=== PATIENT | female | born 1960 | race Caucasian/White ===

== ENCOUNTER 2017-11-08 12:47 | Observation (INO) | payer MEDICARE ==
[~2017-11-08] VITALS: Ht 165.1 cm; Wt 150.0 kg
--- NOTE | ~2017-11-08 | HEMODYNAMI ---
PATIENT:WALTER YUAN MEDICAL RECORD: [id number] : 64 LOCATION:[address] [facility]# [id number] ADMISSION DATE: 11/08/17 Generatedon:11/09/20177:19 Patient name: WALTER YUAN Patient #: [id number] SSN: : 1960 Date of study: 11/09/2017 Page: Of Hemodynamic Procedure Report Patient Data Patient Demographics Procedure consent was obtained First Name: WALTER Gender: Female Last Name: KWABENA : 1960 Middle Initial: ADDIE Age: 56 year(s) Patient #: [id number] Race: Unknown Additional ID: [id number] Contact details Address: [address] [place] [address] State: [place] City: [place] Zip code: [address] Past Medical History Allergies: No known allergies Admission Admission Data Admission Date: 11/08/2017 Admission Time: 14:40 Room #: D.2119 Lab Results Lab Result Date: 11/09/2017 Lab Result Time: 0:00 Biochemistry Name Units Result Min Max BUN mg/dl 18 --(---*)-- 7 18 Creatinine mg/dl 0.9 --(-*--)-- 0.6 1.3 CBC Name Units Result Min Max Hemoglobin g/dl 14.1 --(*---)-- 13.5 17.5 Procedure Procedure Types Cath Procedure Diagnostic Procedure [facility] w/Coronaries Sedation Charges Moderate Sedation up to 30 minutes PCI Procedure Coronary Stent Coronary Stent Initial Procedure Description Procedure Date Procedure Date: 11/09/2017 Procedure Start Time: 6:42 Procedure End Time: 7:19 Procedure Staff Name Function Sancho Seth MD Performing Physician Marcelina Hart RT Monitor Kai Morrison RN Nurse Viktor Yanez RT Scrub Procedure Data Cath Procedure Fluoroscopy Diagnostic fluoroscopy Total fluoroscopy Time: time: 10.8 min 10.8 min Diagnostic fluoroscopy Total fluoroscopy dose: dose: 2040 mGy 2040 mGy Contrast Material Contrast Material Type Amount (ml) Isovue 300 236 Entry Location Entry Primary Successful Side Size Upsize Upsize Entry Closure Sroensen ccessful Closure Location (Fr) 1 (Fr) 2 (Fr) Remarks Device Remarks Radial Right 6 Fr Mechanical artery Short Compression Estimated blood loss: 10 ml Diagnostic catheters Device Type Used For End Catheter Placement DIAGNOSTIC [place] 110cm 5 Procedure Fr catheter ([id number]) Procedure Complications No complications Procedure Medications Medication Administration Route Dosage Oxygen etCO2 Nasal cannula 2 l/min Heparin Flush Bag added to field 2 bags (1000units/500ml NS) 0.9% NaCl I.V. 100 ml/hr Radial Cocktail added to field 1 syringe (Verapomil 2mg/Nitro 400mcg/Heparin 1500units) Fentanyl I.V. 50 mcg Versed I.V. 1 mg Radial Cocktail I.A. 1 syringe (Verapomil 2mg/Nitro 400mcg/Heparin 1500units) Fentanyl I.V. 50 mcg Versed I.V. 1 mg Heparin Bolus I.V. 38176 units Integrilin (Bolus I.V. 11.3 ml 2mg/ml) Integrilin (Bolus wasted 8.7 ml 2mg/ml) Nitroglycerin IC/IA I.C. 100 mcg Fentanyl I.V. 50 mcg Fentanyl I.V. 50 mcg Brilinta P.O. 180 mg Hemodynamics Rest Heart Rate: 101 (bpm) Pressure Samples Time Site Value (mmHg) Purpose Heart Use Rate(bpm) 6:46 LV 143/-1,13 Snapshot 101 Gradients Valve Time Site Site Mean SEP/DFP Peak To Heart Use 1 2 (mmHg) (sec/min) Peak Rate (mmHg) (bpm) Aortic 6:47 LV AO 100 Snapshots Pre Cath Intra NCS Post Cath Vital Signs Time Heart Resp SPO2 etCO2 NIBP (mmHg) Rhythm Pain Sedation Rate (ipm) (%) (mmHg) Status Level (bpm) 6:33:04 89 16 96 0 173/106(135) NSR 0 (11) 10(A) , No pain 6:38:19 97 16 96 0 160/92(118) NSR 0 (11) 10(A) , No pain 6:43:32 104 18 96 0 141/83(111) NSR 0 (11) 9(A) , No pain 6:48:42 98 17 95 0 136/72(93) NSR 0 (11) 9(A) , No pain 6:53:47 98 16 96 0 144/77(104) NSR 0 (11) 9(A) , No pain 6:59:43 85 19 98 0 145/76(106) NSR 0 (11) 9(A) , No pain 7:04:50 97 17 96 0 147/87(102) NSR 0 (11) 9(A) , No pain 7:09:58 95 16 95 0 143/86(117) NSR 0 (11) 9(A) , No pain 7:15:05 100 17 96 0 139/76(105) NSR 0 (11) 9(A) , No pain 7:17:45 96 18 96 0 142/81(106) NSR 0 (11) 9(A) , No pain Medications Time Medication Route Dose Verified Delivered Reason Note s Effectiveness by by 6:33:26 Oxygen etCO2 2 l/min Sancho Kai Per physician Nasal Rolo Morrison RN cannula 6:33:35 Heparin Flush added 2 bags Sancho Kai used for Bag to Rolo Morrison RN procedure (1000units/500ml field NS) 6:33:44 0.9% NaCl I.V. 100 Sancho Kai Per physician ml/hr Rolo Morrison RN 6:33:52 Radial Cocktail added 1 Sancho Kai used for (Verapomil to syringe Rolo Morrison RN procedure 2mg/Nitro field 400mcg/Heparin 1500units) 6:37:26 Fentanyl I.V. 50 mcg Sancho Kai for sedation Rolo Morrison RN 6:37:32 Versed I.V. 1 mg Sancho Kai for sedation Rolo Morrison RN 6:45:03 Radial Cocktail I.A. 1 Sancho Sancho for (Verapomil syringe Rolo thibodeaux 2mg/Nitro 400mcg/Heparin 1500units) 6:45:10 Fentanyl I.V. 50 mcg Sancho Kai for sedation Rolo Morrison RN 6:45:14 Versed I.V. 1 mg Sancho Kai for sedation Rolo Morrison RN 6:53:45 Heparin Bolus I.V. 44147 Sancho Kai for units Rolo Morrison RN anticoagulation 7:00:09 Fentanyl I.V. 50 mcg Sancho Sancho for sedation Rolo Seth MD 7:01:10 Integrilin I.V. 11.3 ml Sancho Kai for (Bolus 2mg/ml) Rolo Morrison RN antiplatelet therapy 7:06:01 Integrilin wasted 8.7 ml Sancho Kai for (Bolus 2mg/ml) Rolo Morrison RN antiplatelet therapy 7:06:20 Nitroglycerin I.C. 100 mcg Sancho Sancho for IC/IA Rolo Seth MD vasodilation 7:07:11 Fentanyl I.V. 50 mcg Sancho Sancho for sedation Rolo Seth MD 7:16:33 Brilinta P.O. 180 mg Sancho Sancho for Rolo Seth MD antiplatelet therapy Procedure Log Time Note 5:39:16 Time tracking: Call back (After hours or weekends) 5:39:21 Plan of Care:Hemodynamics will remain stable., Cardiac rhythm will remain stable., Comfort level will be maintained., Respiratory function will remain adequate., Patient/ family verbilizes understanding of procedure., Procedure tolerated without complication., Recovers from procedure without complications.. 6:09:25 Viktor Yanez RT(R) sent for patient. Start room use. 6:12:12 Lab Result : BUN 18 mg/dl 6:12:12 Lab Result : Creatinine 0.9 mg/dl 6:12:12 Lab Result : Hemoglobin 14.1 g/dl 6:12:21 Patient allergic to No known allergies 6:22:14 Patient received from Med II to CCL 1 Alert and oriented. Tansferred to table in Supine position. 6:22:15 Warm blankets applied, and antonio hugger turned on for patient comfort. 6:22:16 Correct patient and procedure confirmed by team. 6:22:17 Signed procedure consent form obtained from patient. 6:22:18 ECG and BP/O2 sat monitors applied to patient. 6:28:14 H&P Date Dictated: 11/09/2017 Within 30 days and on chart.. 6:28:15 Pre-procedure instructions explained to patient. 6:28:16 Pre-op teaching completed and patient verbalized understanding. 6:28:17 Family unavailable. 6:28:19 Patient NPO since Midnight. 6:28:22 Is the patient allergic to Iodine/contrast media? No. 6:28:23 Is patient on blood thinner?No 6:28:26 Patient diabetic? Yes. 6:28:27 If diabetic: On Metformin? No 6:28:31 Previous problem with sedation/anesthesia? No ? 6:28:33 Snore? Yes 6:28:37 Sleep apnea? No 6:28:38 Deviated septum? No 6:28:38 Opens mouth fully? Yes 6:28:39 Sticks out tongue? Yes 6:28:40 Airway obstruction? No ? 6:28:50 Dentures? Yes Partial OUT 6:28:52 Pre procedure: right dorsailis pedis pulse 1+ Palpable, but thready & weak; easily obliterated 6:28:54 Modified Osman's test Ulnar < 7 seconds 6:28:58 Patient pain scale 0/10 ?. 6:29:04 IV patent on arrival in right forearm with 0.9% NaCl at [facility]. 6:29:06 Lab results completed and on chart. 6:29:09 Right Radial & Right Groin area was prepped with chlora-prep and draped in sterile fashion 6:29:10 Alarms reviewed by R. N. 6:29:11 Sharps counted by scrub and verified by R.N. 6:30:00 Vital chart was started 6:30:05 Rhythm: sinus rhythm 6:30:06 Full Disclosure recording started 6:33:26 Oxygen 2 l/min etCO2 Nasal cannula was administered by Kai Morrison RN; Per physician; 6:33:35 Heparin Flush Bag (1000units/500ml NS) 2 bags added to field was administered by Kai Morrison RN; used for procedure; 6:33:44 0.9% NaCl 100 ml/hr I.V. was administered by Kai Morrison RN; Per physician; 6:33:52 Radial Cocktail (Verapomil 2mg/Nitro 400mcg/Heparin 1500units) 1 syringe added to field was administered by Kai Morrison RN; used for procedure; 6:37:00 --------ALL STOP TIME OUT------ 6:37:00 Final Timeout: patient, procedure, and site verified with staff and physician. All members of the team are in agreement. 6:37:02 Right Radial & Right Groin site verified by team. 6:37:04 Physical assessment completed. ASA score P 2 - A patient with mild systemic disease as per Sancho Seth MD. 6:37:07 Sedation plan: IV Moderate Sedation Medication:Versed, Fentanyl 6:37:12 Use device set Radial Dx or PCI 6:37:13 ACIST Syringe (16576) opened to sterile field. 6:37:14 Bag Decanter (2001S) opened to sterile field. 6:37:19 ACIST Hand Control (30689) opened to sterile field. 6:37:19 ACIST Manifold (41052) opened to sterile field. 6:37:20 Tegaderm 4 x 4 (1626W) opened to sterile field. 6:37:22 Medline Cath Pack (CFMK10690) opened to sterile field. 6:37:23 DIAGNOSTIC WIRE .035 260cm J wire (649277) opened to sterile field. 6:37:23 MBrace Wrist Support (965025794) opened to sterile field. 6:37:24 SHEATH 6Fr Prelude Radial ([id number]) opened to sterile field. 6:37:26 Fentanyl 50 mcg I.V. was administered by Kai Morrison RN; for sedation; 6:37:32 Versed 1 mg I.V. was administered by Kai Morrison RN; for sedation; 6:42:35 Zero performed for pressure channel P1 6:42:38 Procedure started. 6:42:52 Local anesthetic to right radial artery with Lidocaine 2% by Sancho Seth MD.INITIAL ACCESS ONLY 6:44:25 A 6 Fr Short sheath was inserted into the Right Radial artery 6:45:01 A DIAGNOSTIC [place] 110cm 5 Fr catheter (776680) was advanced over the wire and used for Procedure. 6:45:03 Radial Cocktail (Verapomil 2mg/Nitro 400mcg/Heparin 1500units) 1 syringe I.A. was administered by Sancho Seth MD; for vasodilation; 6:45:10 Fentanyl 50 mcg I.V. was administered by Kai Morrison RN; for sedation; 6:45:14 Versed 1 mg I.V. was administered by Kai Morrison RN; for sedation; 6:45:45 LV gram done using JERONIMO 6:45:49 Injector settings: Ml/sec: 7, Volume: 15, 6:46:47 LV hemodynamics recorded. 6:47:26 EF : 35 % 6:48:32 LCA angiography performed. 6:49:30 RCA angiography performed. 6:49:46 Catheter exchanged over wire. 6:49:49 INFLATOR Merit BasixCompak (XR6275) opened to sterile field. 6:49:51 TUBING High Pressure Extension Tubing (Seth) ([id number]) opened to sterile field. 6:49:53 [place] 300cm Straight Liberal 2 wire (5981547) opened to sterile field. 6:50:15 GUIDE 6FR XBLAD 3.5 catheter (76814677) opened to sterile field. 6:51:27 6 Fr XBLAD 3.5 guide catheter was inserted over the wire 6:53:45 Heparin Bolus 20299 units I.V. was administered by Kai Morrison RN; for anticoagulation; 6:55:54 [place] 300 wire advanced. 6:57:57 Wire advanced across lesion. 6:59:46 Inflate balloon Inflation number: 1 A EMERGE OTW 2.5 x 15 balloon ([id number]) was prepped and advanced across the Prox LAD, then inflated to 12 SOFIA for 0:10 (min:sec). 7:00:03 Inflation number: 2 The EMERGE OTW 2.5 x 15 balloon ([id number]) was reinflated across the Prox LAD, to 12 SOFIA for 0:10 (min:sec). 7:00:09 Fentanyl 50 mcg I.V. was administered by Sancho Seth MD; for sedation; 7:00:27 Balloon removed over the wire. 7:01:10 Integrilin (Bolus 2mg/ml) 11.3 ml I.V. was administered by Kai Morrison RN; for antiplatelet therapy; 7:05:22 Place stent Inflation Number: 3 A CAPRICE OTW 3.5 x 22 stent ([id number]) was prepped and advanced across the Prox LAD. The stent was deployed at 12 SOFIA for 0:10 (min:sec). 7:06:01 Integrilin (Bolus 2mg/ml) 8.7 ml wasted was administered by Kai Morrison RN; for antiplatelet therapy; 7:06:20 Nitroglycerin IC/IA 100 mcg I.C. was administered by Sancho Seth MD; for vasodilation; 7:06:40 Stent catheter was removed intact over wire. 7:07:11 Fentanyl 50 mcg I.V. was administered by Sancho Seth MD; for sedation; 7:11:11 Place stent Inflation Number: 1 A CAPRICE OTW 2.75 x 12 stent ([id number]) was prepped and advanced across the Mid LAD. The stent was deployed at 12 SOFIA for 0:10 (min:sec). 7:12:51 Stent catheter was removed intact over wire. 7:13:05 Wire removed. 7:13:06 Guide catheter removed. 7:13:27 TR BAND Large ([id number]) opened to sterile field. 7:13:34 Procedure ended.(Physican Out) 7:13:52 Sheath removed intact; hemostasis achieved with Mechanical Compression to the Right Radial artery. 7:15:02 Fluoroscopy time 10.80 minutes. 7:15:08 Fluoroscopy dose: 2040 mGy 7:15:08 Flurop Dose total: 2040 7:15:14 Contrast amount:Isovue 300 236ml. 7:15:27 Sharps counted by scrub and verified by R.N. 7:15:34 TR band inflated with 12cc of air. 7:15:48 Post-procedure physical assessment completed. ASA score P 2 - A patient with mild systemic disease as per Sancho Seth MD. 7:15:55 Post procedure rhythm: sinus rhythm 7:15:57 Estimated blood loss: 10 ml 7:15:58 Post procedure instruction explained to patient.Patient verbalizes understanding. 7:15:58 Patient needs reinforcement of post procedure teaching. 7:16:26 Procedure type changed to Cath procedure, Diagnostic procedure, [facility], [facility] w/Coronaries, Sedation Charges, Moderate Sedation up to 30 minutes, PCI procedure, Coronary Stent, Coronary Stent Initial 7:16:33 Brilinta 180 mg P.O. was administered by Sancho Seth MD; for antiplatelet therapy; 7:16:57 Procedure and supply charges have been captured, reviewed, submitted and are correct. 7:17:06 Procedure Complication : No complications 7:19:07 Vital chart was stopped 7:19:07 See physician's report for complete and final results. 7:19:09 Report given to PCU. 7:19:12 Patient transfered to PCU with Bed. 7:19:14 Procedure ended. 7:19:14 Full Disclosure recording stopped 7:19:18 End room use (Document Last) Intervention Summary Intervention Notes Time ActionType Lesion and Equipment Action# Pressure Duration Attributes Used 6:59:46 Inflate Prox LAD EMERGE OTW 1 12 00:10 balloon 2.5 x 15 balloon ([id number]) 7:00:03 Reinflate Prox LAD EMERGE OTW 2 12 00:10 balloon 2.5 x 15 balloon ([id number]) 7:05:22 Place stent Prox LAD CAPRICE OTW 3.5 3 12 00:10 x 22 stent ([id number]) 7:11:11 Place stent Mid LAD CAPRICE OTW 2.75 1 12 00:10 x 12 stent ([id number]) Device Usage Item Name Manufacture Quantity Catalog Number Hospital Part Current Minimal Lot# / Charge Number Stock Stock Serial# Code ACIST Syringe Acist 1 22108 371442 085483 055233 20 (27137) Medical Systems Inc Bag Decanter Microtek 1 2001S 104848 23187 002136 5 (2001S) Medical Inc. ACIST Hand Acist 1 89757 803969 065404 371435 5 Control (67852) [employer] Systems Inc ACIST Manifold Acist 1 72426 888022 207659 499064 5 (68456) Medical Systems Inc Tegaderm 4 x 4 3M 1 1626W 539727 958777 042844 5 (1626W) Medline Cath Cardinal 1 [id number] 314814 23169 046616 5 [facility] ([id number]) DIAGNOSTIC WIRE [place] 1 288196 814347 815898 510713 30 .035 260cm J wire (662725) MBrace Wrist Advanced 1 140-0250-00 334487 50712 777024 5 Support Vascular (149390254) Dynamics SHEATH 6Fr Merit 1 [id number] 589932 513408 731891 5 Prelude Radial Medical ([id number]) DIAGNOSTIC Terumo 1 40-4648 430384 114423 079768 5 [place] 110cm 5 Fr catheter (973235) INFLATOR Merit Merit 1 QX8694 112829 980772 403289 15 BasixDataMotion Medical (YD6566) TUBING High Merit 1 [id number] 838092 13354 719459 10 Pressure Medical Extension Tubing (Seth) (MY0924I) BMW 300cm Hodge 1 6172521 081188 326416 540836 5 Straight Vascular Liberal 2 wire (7163962) GUIDE 6FR XBLAD Cardinal 1 01625940 430733 098847 056542 10 3.5 catheter Health (32418850) EMERGE OTW 2.5 [place] 1 [id number] 825111 965990 592362 5 [id number] x 15 balloon Scientific ([id number]) CAPRICE OTW 3.5 x Medtronic 1 [id number] 967162 9930595 637790 5 [id number] 22 stent ([id number]) CAPRICE OTW 2.75 x Medtronic 1 [id number] 287431 2107653 539384 5 [id number] 12 stent ([id number]) TR BAND Large Terumo 1 [id number] 588296 867190 193810 40 ([id number]) Signature Audit Amorita Stage Time Signature Unsigned Intra-Procedure 11/09/2017 Marcelina Hart 7:19:44 AM RT(R) Signatures Monitor : Marcelina Hart Signature : RT Date : Time : [id number] [place] [address]
[2017-11-08] MEDS ORDERED: GABAPENTIN100 MG PO (12:58)
[2017-11-08] MEDS ORDERED: ACETAMINOPHEN500 M1 PO (12:59)
[2017-11-08] MEDS ORDERED: ROBAXIN-750750 MG PO (12:59)
[2017-11-08] MEDS ORDERED: TOUJEO SOL300 UNIT/1 SQ (13:00)
[2017-11-08] MEDS ORDERED: NOVOLIN R100 U/ML SQ (13:01)
[2017-11-08 13:12] LABS: BASOPHILS 0.5 % (0-2); EOSINOPHILS 2.4 % (0-7); HEMATOCRIT 41.8 % (36.0-48.0); HEMOGLOBIN 14.1 g/dL (12-16); IMMATURE GRANULOCYTES 0.2 % (0-5); LYMPHOCYTES 24.7 % (15-50); MCH 27.8 pg (26.0-34.0); MCHC 33.7 g/dL (31.0-37.0); MCV 82.4 fL (80.0-100.0); MEAN PLATELET VOLUME 10.3 fL (7.4-10.4); MONOCYTES 6.5 % (2-11); NEUTROPHILS 65.7 % (40-80); PLATELET COUNT 235 10x3/uL (130-400); RBC 5.07 10x6/uL (4.00-5.40); RDW 14.7 % (11.5-14.5)
[2017-11-08 13:25] LABS: ALBUMIN 3.3 g/dL (3.4-5.0); ANION GAP 17.3 mmol/L (8-16); BILIRUBIN - TOTAL 0.41 mg/dL (0.2-1.3); CALCIUM 8.6 mg/dL (8.5-10.1); CARBON DIOXIDE 19.8 mmol/L (21.0-32.0); CREATININE - SERUM 0.9 mg/dL (0.6-1.3); POTASSIUM - SERUM 4.1 mmol/L (3.5-5.1); PROTEIN - SERUM 7.1 g/dL (6.4-8.2)
[2017-11-08 13:42] LABS: CREATINE KINASE 200 UL (21-215)
[2017-11-08 13:45] LABS: TROPONIN-I 1.143 ng/mL (0.000-0.060)
[2017-11-08 14:00] VITALS: BP 136/73
[2017-11-08 16:26] VITALS: BP 136/73; BMI 55.0
[2017-11-08 20:30] LABS: CKMB 70.9 U/L (0.0-3.6)
[2017-11-08 20:35] LABS: CREATINE KINASE 808 UL (21-215)
[2017-11-08 20:39] LABS: TROPONIN-I 10.663 ng/mL (0.000-0.060)
[2017-11-08 21:37] VITALS: BP 143/74
[2017-11-09 01:32] VITALS: BP 143/74
[2017-11-09 01:42] LABS: CKMB 83.3 U/L (0.0-3.6); CREATINE KINASE 952 UL (21-215); TROPONIN-I 13.978 ng/mL (0.000-0.060)
[2017-11-09 06:11] VITALS: BP 149/93
[2017-11-09 06:26] LABS: BASOPHILS 0.2 % (0-2); EOSINOPHILS 0.3 % (0-7); HEMATOCRIT 41.5 % (36.0-48.0); HEMOGLOBIN 13.4 g/dL (12-16); IMMATURE GRANULOCYTES 0.1 % (0-5); LYMPHOCYTES 17.5 % (15-50); MCH 27.2 pg (26.0-34.0); MCHC 32.3 g/dL (31.0-37.0); MCV 84.2 fL (80.0-100.0); MEAN PLATELET VOLUME 10.3 fL (7.4-10.4); MONOCYTES 5.5 % (2-11); NEUTROPHILS 76.4 % (40-80); PLATELET COUNT 233 10x3/uL (130-400); RBC 4.93 10x6/uL (4.00-5.40); RDW 14.8 % (11.5-14.5); WBC 10.5 10x3/uL (4.8-10.8)
[2017-11-09 07:03] LABS: CALCIUM 8.3 mg/dL (8.5-10.1); CHLORIDE - SERUM 104 mmol/L (98-107); SODIUM 137 mmol/L (136-145)
[2017-11-09 07:08] LABS: CALC OSMOLALITY 281 mosm/kg (275-300); CREATINE KINASE 846 UL (21-215); CREATININE - SERUM 0.6 mg/dL (0.6-1.3); GLUCOSE 245 mg/dL (74-106); TROPONIN-I 12.661 ng/mL (0.000-0.060); UREA NITROGEN 13 mg/dL (7-18); eGFR NON AFRICAN AMERICAN > 90 mL/min (90-120)
[2017-11-09 07:09] LABS: CKMB 74.5 U/L (0.0-3.6)
[2017-11-09 11:24] VITALS: Ht 165.1 cm; Wt 150.0 kg
[2017-11-09 16:54] VITALS: BP 126/83
[2017-11-09 20:00] VITALS: BP 107/65
[2017-11-10] VITALS: BP 137/79
[2017-11-10 08:43] VITALS: BP 126/83
[2017-11-10] MEDS ORDERED: BRILINTA90 MG PO (10:43)
[2017-11-10] MEDS ORDERED: LISINOPRIL5 MG PO (10:43)
[2017-11-10] MEDS ORDERED: COREG 3.1253.125 MG PO (10:43)
== END 2017-11-10 12:04 | disposition home or self-care (01) ==
LOC: D.ER 12:47 → D.M2 14:40 → D.EDHOLD 14:40 → OBSVTIME 14:45 → D.M2 14:49
PROVIDERS: Emergency Medicine; Internal Medicine Cardiovascular Disease
DX: I21.4 Non-ST elevation (NSTEMI) myocardial infarction (principal); I25.110 Atherosclerotic heart disease of native coronary artery with unstable angina pectoris; I10 Essential (primary) hypertension; E11.9 Type 2 diabetes mellitus without complications; Z72.0 Tobacco use
CPT/HCPCS: 93458; C9600

== ENCOUNTER 2017-12-05 22:06 | Outpatient (CLI) | payer MEDICARE ==
[~2017-12-05] VITALS: Ht 165.1 cm; Wt 100.5 kg
--- NOTE | ~2017-12-05 | DS ---
PATIENT:WALTER YUAN :64 MEDICAL RECORD: [id number] DISCHARGE SUMMARY ADMISSION DATE: 12/05/17 DISCHARGE DATE: 12/06/17 DATE OF SERVICE: 12/06/2017. DIAGNOSES: 1. Angina. 2. Coronary artery disease. 3. Percutaneous transluminal coronary angioplasty stent right coronary artery this admission. HOSPITAL COURSE: Ms. Yuan presents with anginal symptomatology, found to have significant disease of the RCA, underwent successful PTCA stent of the RCA, was discharged home with no change in her medication as she is already on Brilinta and aspirin. Follow up with [facility] as previously scheduled. 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
--- NOTE | ~2017-12-05 | HP ---
PATIENT: WALTER YUAN MEDICAL RECORD: [id number] ACCOUNT: [id number] [facility] : 64 ADMISSION DATE: 12/05/17 HISTORY AND PHYSICAL EXAMINATION DIAGNOSES: 1. Unstable angina. 2. Abnormal electrocardiogram. 3. Coronary artery disease. 4. Hypertension. 5. Insulin-dependent diabetes. HISTORY OF PRESENT ILLNESS: Mrs. Yuan presents with severe chest pain yesterday. Her EKG shows T-wave inversions anteriorly. Approximately 3 weeks ago, She underwent successful PTCA stent of the LAD by Dr. Seth. There were no other significant blockages. She is taking Brilinta and aspirin. PHYSICAL EXAMINATION: GENERAL APPEARANCE: Well-nourished, well-developed, appears stated age. Level of distress, comfortable. PSYCHIATRIC: Mental status, alert, normal affect. Orientation, oriented to time, place and person. EYES: Lids and conjunctiva, noninjected. No discharge, no pallor. ENT: Lips, teeth, gums, normal dentition. Oropharynx, no cyanosis, no pallor. NECK: Carotid arteries, bilateral normal upstroke, no bruits, no thrills. JUGULAR VEINS: No jugular venous pressure or distention. CERVICAL LYMPH NODES: Nontender, nonenlarged. THYROID: Not enlarged. Nontender. No nodules. LUNGS: Respiratory effort, unlabored. CHEST: Normal curvature. No thoracic deformity. No chest wall tenderness. Percussion, resonant. Auscultation, clear. No wheezes, no rales, no rhonchi. CARDIOVASCULAR: Precordial exam, nondisplaced. No heaves or pericardial thrills. Rate and rhythm, regular. Heart sounds, normal S1, normal S2. No S3, no gallop, no rub. Systolic murmur, not heard. Diastolic murmur, not heard. EXTREMITIES: No cyanosis, no edema. Peripheral pulses, full and equal in all extremities, except as noted. No bruits appreciated. ABDOMEN: Soft, nondistended. Normal aorta. No bruit. Nontender. No masses. Liver, nontender, no hepatomegaly. Spleen, nontender, no splenomegaly. MUSCULOSKELETAL: No joint tenderness. No joint swelling. No erythema. NEUROLOGICAL: Normal gait, normal strength, normal tone. SKIN: Warm and dry. OVERALL IMPRESSION: Unstable anginal symptomatology with EKG abnormalities in the anterior distribution. After percutaneous transluminal coronary angioplasty stent of the left anterior descending, we will perform repeat angiography. Further care depends upon findings of the angiography. TRANSINT:[id number] Voice Confirmation ID: [id number] DOCUMENT ID: [id number] HISTORY AND PHYSICAL [id number] WALTER YUAN JEFFREY MD at 1752 CC: [id number] DICTATION DATE: 12/06/17 08 [employer] TEAM MEMBER: 12/06/17 0846 DIS IN 12/06/17 [facility] [address] [place] [address]
--- NOTE | ~2017-12-05 | HEMODYNAMI ---
PATIENT:WALTER YUAN MEDICAL RECORD: [id number] : 64 LOCATION[facility] [address] [facility] [id number] ADMISSION DATE: 12/05/17 Generatedon:12/06/201712:47 Patient name: WALTER YUAN Patient #: [id number] SSN: : 1960 Date of study: 12/06/2017 Page: Of Hemodynamic Procedure Report Patient Data Patient Demographics Procedure consent was obtained First Name: WALTER Gender: Female Last Name: KWABENA : 1960 Middle Initial: ADDIE Age: 57 year(s) Patient #: [id number] Race: Unknown Additional ID: [id number] Contact details [address]: [address] [place] [address] State: [place] City: [place] Zip code: [address] Past Medical History Allergies: No known allergies Admission Admission Data Admission Date: 12/05/2017 Admission Time: 23:41 Room #: D.2130 Height (in.): 64.96 BSA: 2.06 (m2) Height (cm.): 165 BMI: 36.73 (kg/m2) Weight (lbs.): 220.46 Weight (kg.): 100 Lab Results Lab Result Date: 12/06/2017 Lab Result Time: 0:00 Biochemistry Name Units Result Min Max BUN mg/dl 19 --(----)*- 7 18 Creatinine mg/dl 0.8 --(-*--)-- 0.6 1.3 CBC Name Units Result Min Max Hemoglobin g/dl 13.9 --(*---)-- 13.5 17.5 Procedure Procedure Types Cath Procedure Diagnostic Procedure [facility] w/Coronaries PCI Procedure Coronary Stent Coronary Stent Initial Procedure Description Procedure Date Procedure Date: 12/06/2017 Procedure Start Time: 12:24 Procedure End Time: 12:46 Procedure Staff Name Function Seth Frey MD Performing Physician Cecilio Daniels RT Monitor Kai Morrison RN Nurse Abigail Lew RT Scrub Procedure Data Cath Procedure Fluoroscopy Diagnostic fluoroscopy Total fluoroscopy Time: 7.6 time: 7.6 min min Diagnostic fluoroscopy Total fluoroscopy dose: dose: 582.48 mGy 582.48 mGy Contrast Material Contrast Material Type Amount (ml) Isovue 300 59 Entry Location Entry Primary Successful Side Size Upsize Upsize Entry Closure Sorensen ccessful Closure Location (Fr) 1 (Fr) 2 (Fr) Remarks Device Remarks Radial Right 6 Fr Mechanical artery Short Compression Estimated blood loss: 10 ml Diagnostic catheters Device Type Used For End Catheter Placement DIAGNOSTIC [place] 110cm 5 Coronary Fr catheter ([id number]) Angiography Procedure Medications Medication Administration Route Dosage Oxygen etCO2 Nasal cannula 2 l/min Heparin Flush Bag added to field 2 bags (1000units/500ml NS) 0.9% NaCl I.V. 100 ml/hr Radial Cocktail added to field 1 syringe (Verapomil 2mg/Nitro 400mcg/Heparin 1500units) Brilinta P.O. 90 mg Fentanyl I.V. 50 mcg Versed I.V. 1 mg Fentanyl I.V. 50 mcg Versed I.V. 1 mg Radial Cocktail I.A. 1 syringe (Verapomil 2mg/Nitro 400mcg/Heparin 1500units) Fentanyl I.V. 50 mcg Fentanyl I.V. 50 mcg Heparin Bolus I.V. 4000 units Hemodynamics Rest BSA: 2.06 (m2) HGB: 13.9 (g/dl) O2 Consumption: Estimated: 195.94 (ml/min) O2 Co nsumption indexed: Estimated:95.12 (ml/min/m) Heart Rate: 67 (bpm) Pressure Samples Time Site Value (mmHg) Purpose Heart Use Rate(bpm) 12:29 LV 102/22,33 Snapshot 78 Snapshots Pre Cath Intra NCS Post Cath Vital Signs Time Heart Resp SPO2 etCO2 NIBP (mmHg) Rhythm Pain Sedation Rate (ipm) (%) (mmHg) Status Level (bpm) 12:07:05 72 18 100 0 142/86(100) NSR 0 (11) 10(A) , No pain 12:11:48 72 21 96 22.5 123/72(100) NSR 0 (11) 10(A) , No pain 12:16:21 75 18 95 37.5 133/74(94) NSR 0 (11) 10(A) , No pain 12:20:55 70 17 96 13.5 117/63(86) NSR 0 (11) 10(A) , No pain 12:25:29 65 16 98 33.7 114/63(85) NSR 0 (11) 9(A) , No pain 12:29:49 108 18 96 29.2 97/85(91) NSR 0 (11) 9(A) , No pain 12:34:16 69 18 96 36 107/59(85) NSR 0 (11) 9(A) , No pain 12:38:48 71 17 96 32.9 102/59(82) NSR 0 (11) 9(A) , No pain 12:43:15 65 17 98 30 108/61(80) NSR 0 (11) 10(A) , No pain Medications Time Medication Route Dose Verified Delivered Reason Not es Effectiveness by by 11:58:33 Oxygen etCO2 2 l/min Seth Quinn Per physician Nasal Shante Morrison RN cannula 11:58:43 Heparin Flush added 2 bags Seth Quinn used for Bag to Shante Morrison RN procedure (1000units/500ml field NS) 11:58:53 0.9% NaCl I.V. 100 Seth Quinn Per physician ml/hr Shante Morrison RN 11:59:04 Radial Cocktail added 1 Seth Quinn used for (Verapomil to syringe Shante Morrison RN procedure 2mg/Nitro field 400mcg/Heparin 1500units) 12:10:36 Brilinta P.O. 90 mg Seth Quinn for Shante Morrison RN antiplatelet therapy 12:22:06 Fentanyl I.V. 50 mcg Seth Quinn for sedation Shante Morrison RN 12:22:13 Versed I.V. 1 mg Seth Quinn for sedation Shante Morrison RN 12:24:16 Fentanyl I.V. 50 mcg Seth Quinn for sedation Shante Morrison RN 12:24:23 Versed I.V. 1 mg Seth Quinn for sedation Shante Morrison RN 12:25:53 Radial Cocktail I.A. 1 Seth Ann for (Verapomil syringe hSante thibodeaux 2mg/Nitro 400mcg/Heparin 1500units) 12:26:34 Fentanyl I.V. 50 mcg Seth Quinn for sedation Shante Morrison RN 12:34:19 Fentanyl I.V. 50 mcg Seth Quinn for sedation Shante Morrison RN 12:36:14 Heparin Bolus I.V. 4000 Seth Quinn for units Shante Morrison RN anticoagulation Procedure Log Time Note 11:40:57 Patient Height : 64.96 inches 11:41:00 Patient Weight : 220.46 lbs 11:41:41 Lab Result : BUN 19 mg/dl 11:41:41 Lab Result : Hemoglobin 13.9 g/dl 11:41:41 Lab Result : Creatinine 0.8 mg/dl 11:48:09 Diagnostic Cath status Elective 11:48:14 Kai Morrison RN sent for patient. Start room use. 11:48:16 Time tracking: Regular hours (M-F 7:00 - 5:00) 11:48:21 Plan of Care:Hemodynamics will remain stable., Cardiac rhythm will remain stable., Comfort level will be maintained., Respiratory function will remain adequate., Patient/ family verbilizes understanding of procedure., Procedure tolerated without complication., Recovers from procedure without complications.. 11:49:52 H&P Date Dictated: 12/05/2017 ER History on chart.. 11:58:33 Oxygen 2 l/min etCO2 Nasal cannula was administered by Kai Morrison RN; Per physician; 11:58:43 Heparin Flush Bag (1000units/500ml NS) 2 bags added to field was administered by Kai Morrison RN; used for procedure; 11:58:53 0.9% NaCl 100 ml/hr I.V. was administered by Kai Morrison RN; Per physician; 11:59:04 Radial Cocktail (Verapomil 2mg/Nitro 400mcg/Heparin 1500units) 1 syringe added to field was administered by Kai Morrison RN; used for procedure; 12:05:40 Vital chart was started 12:10:36 Brilinta 90 mg P.O. was administered by Kai Morrison RN; for antiplatelet therapy; 12:12:17 Patient received from Med II to CCL 3 Alert and oriented. Tansferred to table in Supine position. 12:12:18 Warm blankets applied, and antonio hugger turned on for patient comfort. 12:12:19 Correct patient and procedure confirmed by team. 12:12:21 Signed procedure consent form obtained from patient. 12:12:22 ECG and BP/O2 sat monitors applied to patient. 12:12:28 Baseline sample Acquired. 12:12:32 Rhythm: sinus rhythm 12:12:36 Full Disclosure recording started 12:12:38 Pre-procedure instructions explained to patient. 12:12:38 Pre-op teaching completed and patient verbalized understanding. 12:12:41 Family unavailable. 12:12:44 Patient NPO since Breakfast. 12:13:07 ALLERGY TO ADHESIVE 12:13:15 Is the patient allergic to Iodine/contrast media? No. 12:13:17 Is patient on blood thinner?Yes 12:13:21 ACC The patient was administered the following blood thiners within the last 24 hours: ACCBrilinta 12:13:24 Patient diabetic? Yes. 12:13:26 If diabetic: On Metformin? No 12:13:37 INSULIN DEPENDANT 12:13:41 ----Pre-sedation anethsthesia assessment.---- 12:13:44 Previous problem with sedation/anesthesia? No ? 12:13:49 Snore? Yes 12:13:51 Sleep apnea? No 12:13:54 Deviated septum? No 12:13:56 Opens mouth fully? Yes 12:13:58 Sticks out tongue? Yes 12:14:03 Airway obstruction? No ? 12:14:07 Dentures? No ? 12:14:12 Pre procedure: right dorsailis pedis pulse 2+ Normal; easily identifiable; not easily obliterated 12:14:16 Patient pain scale 0/10 ?. 12:14:31 IV patent on arrival in left forearm with 0.9% NaCl at [facility]. 12:14:34 Lab results completed and on chart. 12:14:40 Right Radial & Right Groin area was prepped with chlora-prep and draped in sterile fashion 12:14:42 Alarms reviewed by R. N. 12:14:42 Sharps counted by scrub and verified by R.N. 12:14:51 ACIST Syringe (85644) opened to sterile field. 12:14:52 Medline Cath Pack ([id number]) opened to sterile field. 12:14:54 Bag Decanter (2002S) opened to sterile field. 12:14:55 DIAGNOSTIC WIRE .035 260cm J wire (375374) opened to sterile field. 12:14:56 ACIST Hand Control (67174) opened to sterile field. 12:14:57 ACIST Manifold (12949) opened to sterile field. 12:14:59 Tegaderm 4 x 4 (1626W) opened to sterile field. 12:15:01 MBrace Wrist Support ([id number]) opened to sterile field. 12:15:03 SHEATH 6Fr Prelude Radial ([id number]) opened to sterile field. 12:16:52 Physician arrived 12:16:52 --------ALL STOP TIME OUT------ 12::53 Final Timeout: patient, procedure, and site verified with staff and physician. All members of the team are in agreement. 12:16:56 Right Radial & Right Groin site verified by team. 12:16:59 Physical assessment completed. ASA score P 2 - A patient with mild systemic disease as per Seth Frey MD. 12:17:04 Sedation plan: IV Moderate Sedation Medication:Versed, Fentanyl 12:19:53 PATIENTS RING WAS REMOVED FROM RIGHR HAND AND PLACED ON THE LEFT 12:22:06 Fentanyl 50 mcg I.V. was administered by Kai Morrison RN; for sedation; 12:22:13 Versed 1 mg I.V. was administered by Kai Morrison RN; for sedation; 12:22:15 Zero performed for pressure channel P1 12:22:20 Zero performed for pressure channel P1 12:22:23 Zero performed for pressure channel P1 12:23:16 Zero performed for pressure channel P1 12:24:05 Procedure started. 12:24:11 Local anesthetic to right radial artery with Lidocaine 2% by Seth Frey MD.INITIAL ACCESS ONLY 12:24:16 Fentanyl 50 mcg I.V. was administered by Kai Morrison RN; for sedation; 12:24:23 Versed 1 mg I.V. was administered by Kai Morrison RN; for sedation; 12:25:10 A 6 Fr Short sheath was inserted into the Right Radial artery 12:25:53 Radial Cocktail (Verapomil 2mg/Nitro 400mcg/Heparin 1500units) 1 syringe I.A. was administered by Seth Frey MD; for vasodilation; 12:25:55 A DIAGNOSTIC [place] 110cm 5 Fr catheter ([id number]) was advanced over the wire and used for Coronary Angiography. 12:26:34 Fentanyl 50 mcg I.V. was administered by Kai Morrison RN; for sedation; 12:30:03 LV hemodynamics recorded. 12:30:05 LV gram done using JERONIMO 12:30:12 EF : 55 % 12:31:03 RCA angiography performed. 12:31:27 Catheter removed. 12:31:50 GUIDE 6FR EBU 3.5 catheter ([id number]) opened to sterile field. 12:32:03 6 Fr EBU 3.5 guide catheter was inserted over the wire 12:33:33 Catheter removed. unable to cannulate vessel. 12:33:52 GUIDE 6FR XB 3.5 catheter ([id number]) opened to sterile field. 12:34:03 6 Fr XB 3.5 guide catheter was inserted over the wire 12:34:19 Fentanyl 50 mcg I.V. was administered by Kai Morrison RN; for sedation; 12:34:50 LCA angiography performed. 12:34:56 Catheter removed. 12:35:45 CHOICE PT Extra Support 182cm wire ([id number]) opened to sterile field. 12:35:46 INFLATOR Merit BasixCompak (SZ9841) opened to sterile field. 12:35:47 GUIDE 6FR AR 2.0 catheter (LS1YC26) opened to sterile field. 12:35:51 Proceeding to intervention. 12:36:02 6 Fr AR 2 guide catheter was inserted over the wire 12:36:14 Heparin Bolus 4000 units I.V. was administered by Kai Morrison RN; for anticoagulation; 12:37:03 CHOICE wire advanced. 12:37:05 Wire advanced across lesion. 12:38:06 Place stent Inflation Number: 1 A CAPRICE RX 3.0 x 18 stent ([id number]) was prepped and advanced across the Mid RCA. The stent was deployed at 17 SOFIA for 0:10 (min:sec). 12:38:36 Stent catheter was removed intact over wire. 12:38:37 Wire removed. 12:38:38 Guide catheter removed. 12:40:21 TR BAND Large ([id number]) opened to sterile field. 12:40:48 Sheath removed intact; hemostasis achieved with Mechanical Compression to the Right Radial artery. 12:41:42 Procedure ended.(Physican Out) 12:41:47 Fluoroscopy time 07.60 minutes. 12:41:56 Flurop Dose total: 582.48 12:41:56 Fluoroscopy dose: 582.48 mGy 12:42:19 Contrast amount:Isovue 300 59ml. 12:42:21 Sharps counted by scrub and verified by R.N. 12:43:04 TR band inflated with 10cc of air. 12:43:07 Insertion/operative site no bleeding no hematoma. 12:43:13 Post right radial artery:stable 12:43:32 Post-procedure physical assessment completed. ASA score P 2 - A patient with mild systemic disease as per Seth Frey MD. 12:43:36 Post procedure rhythm: sinus rhythm 12:43:40 Estimated blood loss: 10 ml 12:44:05 Post procedure instruction explained to patient.Patient verbalizes understanding. 12:44:05 Patient needs reinforcement of post procedure teaching. 12:44:22 Procedure type changed to Cath procedure, Diagnostic procedure, LHC, LHC w/Coronaries, PCI procedure, Coronary Stent, Coronary Stent Initial 12:44:26 Procedure and supply charges have been captured, reviewed, submitted and are correct. 12:44:51 Vital chart was stopped 12:45:39 See physician's report for complete and final results. 12:45:41 Report given to Pre/Post Procedure Room. 12:45:46 Patient transfered to Pre/Post Procedure Room with Stretcher. 12:46:40 Procedure ended. 12:46:40 Full Disclosure recording stopped 12:46:44 End room use (Document Last) Intervention Summary Intervention Notes Time ActionType Lesion and Equipment Used Action# Pressure Duration Attributes 12:38:06 Place stent Mid RCA CAPRICE RX 3.0 x 1 17 00:10 18 stent ([id number]) Device Usage Item Name Manufacture Quantity Catalog Number Hospital Part Current Minimal Lot# / Charge Number Stock Stock Serial# Code ACIST Syringe Acist 1 95714 050877 851240 171884 20 (80037) Medical [employer] Inc Medline Cath Cardinal 1 [id number] 675913 98765 686922 5 [employer] ([id number]) Bag Decanter Microtek 1 455444 67777 703824 5 () Medical Inc. DIAGNOSTIC WIRE St Á[place]el 1 563283 489627 666424 889901 30 .035 260cm J wire (659779) ACIST Hand Acist 1 69208 418836 619358 322246 5 Control (10873) [employer] Inc ACIST Manifold Acist 1 41300 100328 155028 876364 5 (45407) [employer] Inc Tegaderm 4 x 4 3M 1 1626W 548875 630908 841710 5 (1626W) MBrace Wrist Advanced 1 140-0250-00 322661 62699 205477 5 Support Vascular ([id number]) Dynamics SHEATH 6Fr Merit 1 [id number] 430019 152404 122556 5 Prelude Radial Medical ([id number]) DIAGNOSTIC Terumo 1 40-9733 268933 970882 485537 5 [place] 110cm 5 Fr catheter (187885) GUIDE 6FR EBU Medtronic 1 [id number] 871454 17136 999577 3 3.5 catheter ([id number]) GUIDE 6FR XB Cardinal 1 [id number] 176049 732823 728574 2 3.5 catheter Health ([id number]) CHOICE PT Extra Eden 1 [id number] 807628 554550 787113 5 Support 182cm Scientific wire ([id number]) INFLATOR Merit Merit 1 SB0744 818005 154471 337477 15 BasixQuantock BrewerymdMediaPhy Medical (HS4911) GUIDE 6FR AR Medtronic 1 PP4KQ69 992978 89985 945382 1 2.0 catheter (JY7TM16) CAPRICE RX 3.0 x Medtronic 1 [id number] 064731 7642546 003283 5 [id number] 18 stent ([id number]) TR BAND Large Terumo 1 [id number] 675933 419297 960860 40 ([id number]) Signature Audit [place] Stage Time Signature Unsigned Intra-Procedure 12/06/2017 Cecilio Daniels 12:47:35 PM RT(R) (CV) Signatures Monitor : Cecilio Daniels RT Signature : Date : Time : [facility] [address] [place] [address]
[~2017-12-05 22:06] MED LIST: ACETAMINOPHEN500 M1 PO; BRILINTA90 MG PO; COREG 3.1253.125 MG PO; GABAPENTIN100 MG PO; LISINOPRIL5 MG PO; NOVOLIN R100 U/ML SQ; ROBAXIN-750750 MG PO; TOUJEO SOL300 UNIT/1 SQ
[2017-12-05 22:40] LABS: BASOPHILS 0.2 % (0-2); EOSINOPHILS 2.4 % (0-7); HEMOGLOBIN 13.9 g/dL (12-16); IMMATURE GRANULOCYTES 0.1 % (0-5); LYMPHOCYTES 31.1 % (15-50); MCH 27.7 pg (26.0-34.0); MCHC 33.9 g/dL (31.0-37.0); MCV 81.8 fL (80.0-100.0); MEAN PLATELET VOLUME 10.1 fL (7.4-10.4); MONOCYTES 5.9 % (2-11); NEUTROPHILS 60.3 % (40-80); PLATELET COUNT 261 10x3/uL (130-400); RBC 5.01 10x6/uL (4.00-5.40)
[2017-12-05 22:47] LABS: APTT 24.8 SECONDS (22.8-39.4); INR 0.94 (0.85-1.17); PROTIME 12.2 SECONDS (11.6-15.0)
[2017-12-05 23:00] VITALS: BP 156/66
[2017-12-05 23:01] LABS: ALBUMIN 3.3 g/dL (3.4-5.0); ALKALINE PHOSPHATASE 109 U/L (46-116); ALT (SGPT) 21 U/L (10-68); BILIRUBIN - TOTAL 0.33 mg/dL (0.2-1.3); CALC OSMOLALITY 285 mosm/kg (275-300); CALCIUM 9.2 mg/dL (8.5-10.1); CARBON DIOXIDE 19.4 mmol/L (21.0-32.0); CHLORIDE - SERUM 103 mmol/L (98-107); CREATININE - SERUM 0.8 mg/dL (0.6-1.3); GLUCOSE 280 mg/dL (74-106); POTASSIUM - SERUM 4.1 mmol/L (3.5-5.1); PROTEIN - SERUM 7.2 g/dL (6.4-8.2); SODIUM 137 mmol/L (136-145); UREA NITROGEN 19 mg/dL (7-18); eGFR NON AFRICAN AMERICAN 79 mL/min (90-120)
[2017-12-05 23:05] LABS: CREATINE KINASE 126 UL (21-215); TROPONIN-I < 0.017 ng/mL (0.000-0.060)
[2017-12-06] VITALS: BP 126/73
[2017-12-06 01:00] VITALS: BP 126/68
[2017-12-06 02:41] VITALS: Ht 165.1 cm; Wt 100.5 kg
[2017-12-06 02:59] VITALS: BP 127/72
[2017-12-06 04:00] VITALS: BP 127/72
[2017-12-06 08:39] VITALS: BP 92/43
[2017-12-06 11:45] VITALS: BP 148/96
== END 2017-12-06 17:18 | disposition home or self-care (01) ==
LOC: OBSVTIME → D.ER 22:06 → D.CATH 22:06 → D.CLR 23:41 → D.ER 23:41 → OBSVTIME 23:41 → D.EDHOLD 23:41 → D.M2 23:41 → D.EDHOLD 12-06 00:06 → D.ER 12-06 01:46 → EDSTATUS 12-06 09:00 → D.CLR 12-06 12:50 → D.M2 12-06 12:50 → D.CATH 12-06 17:18 → D.CLR 12-06 17:18
PROVIDERS: Emergency Medicine
DX: I25.110 Atherosclerotic heart disease of native coronary artery with unstable angina pectoris (principal); I10 Essential (primary) hypertension; E11.9 Type 2 diabetes mellitus without complications; R94.31 Abnormal electrocardiogram [ECG] [EKG]; Z01.812 Encounter for preprocedural laboratory examination
CPT/HCPCS: 93458; C9600

== ENCOUNTER 2018-04-06 20:15 | Observation (INO) | payer MEDICARE ==
[2018-04-06] VITALS (9 sets, daily range): BP systolic 97–156; BP diastolic 57–75
[~2018-04-06] VITALS: Ht 165.1 cm; Wt 147.2 kg
--- NOTE | ~2018-04-06 | HEMODYNAMI ---
PATIENT:WALTER YUAN MEDICAL RECORD: [id number] : 64 LOC[address] [id number] ADMISSION DATE: 04/06/18 Generatedon:04/07/20189:51 Patient name: WALTER YUAN Patient #: [id number] SSN: : 1960 Date of study: 04/07/2018 Page: Of Hemodynamic Procedure Report Patient Data Patient Demographics Procedure consent was obtained First Name: WALTER Gender: Female Last Name: KWABENA : 1960 Middle Initial: ADDIE Age: 57 year(s) Patient #: [id number] Race: Unknown Additional ID: [id number] Contact details [address]: [address] [place] [address] State: [place] City: [place] Zip code: [address] Past Medical History Allergies: No known allergies Admission Admission Data Admission Date: 04/06/2018 Admission Time: 21:51 Room #: D.2124 Lab Results Lab Result Date: 04/07/2018 Lab Result Time: 0:00 Biochemistry Name Units Result Min Max BUN mg/dl 21 --(----)-* 7 18 Creatinine mg/dl 1.1 --(--*-)-- 0.6 1.3 CBC Name Units Result Min Max Hemoglobin g/dl 13.4 -*(----)-- 13.5 17.5 Procedure Procedure Types Cath Procedure Diagnostic Procedure [facility] w/Coronaries FFR/IVUS Intra-Coronary IVUS Initial PCI Procedure Coronary Stent Coronary Stent Initial Procedure Description Procedure Date Procedure Date: 04/07/2018 Procedure Start Time: 9:36 Procedure End Time: 9:50 Procedure Staff Name Function Seth Frey MD Performing Physician Viktor Yanez RT Monitor Sarai Romano RN Nurse Jemal Ordoñez RT Scrub Procedure Data Cath Procedure Fluoroscopy Diagnostic fluoroscopy Total fluoroscopy Time: 3.1 time: 3.1 min min Diagnostic fluoroscopy Total fluoroscopy dose: 877 dose: 877 mGy mGy Contrast Material Contrast Material Type Amount (ml) Isovue 300 88 Entry Location Entry Primary Successful Side Size Upsize Upsize Entry Closure Sorensen ccessful Closure Location (Fr) 1 (Fr) 2 (Fr) Remarks Device Remarks Radial Right 6 Fr Mechanical artery Short Compression Diagnostic catheters Device Type Used For End Catheter Placement DIAGNOSTIC [place] 110cm 5 LV Angiography Fr catheter ([id number]) Procedure Complications No complications Procedure Medications Medication Administration Route Dosage 0.9% NaCl I.V. 100 ml/hr Oxygen etCO2 Nasal cannula 2 l/min Lidocaine 2% added to field 20 Heparin Flush Bag added to field 2 bags (1000units/500ml NS) Radial Cocktail added to field 1 syringe (Verapomil 2mg/Nitro 400mcg/Heparin 1500units) Versed I.V. 2 mg Fentanyl I.V. 50 mcg Versed I.V. 2 mg Fentanyl I.V. 50 mcg Heparin Bolus I.V. 4000 units Versed I.V. 2 mg Brilinta P.O. 90 mg Hemodynamics Rest HGB: 13.4 (g/dl) Heart Rate: 77 (bpm) Snapshots Pre Cath Intra NCS Post Cath Vital Signs Time Heart Resp SPO2 etCO2 NIBP (mmHg) Rhythm Pain Sedation Rate (ipm) (%) (mmHg) Status Level (bpm) 9:23:28 64 26 99 32.6 150/88(123) NSR 0 (11) 10(A) , No pain 9:28:05 75 18 100 38.6 134/80(114) NSR 0 (11) 10(A) , No pain 9:32:37 73 19 98 31.8 117/76(94) NSR 0 (11) 10(A) , No pain 9:37:12 72 17 99 32.5 112/67(89) NSR 0 (11) 10(A) , No pain 9:41:44 81 18 96 35.6 110/65(82) NSR 0 (11) 10(A) , No pain 9:46:14 79 18 97 25.7 113/69(87) NSR 0 (11) 10(A) , No pain Medications Time Medication Route Dose Verified Delivered Reason Note s Effectiveness by by 9:24:19 0.9% NaCl I.V. 100 Seth Moon used for ml/hr Shante Romano frame feeder 9:24:27 Oxygen etCO2 2 l/min Seth Sarai used for Nasal Shante Romano procedure cannula RN 9:24:32 Lidocaine 2% added 20ml Seth Seth for local to vial Shante Frey MD anesthetic field 9:24:40 Heparin Flush added 2 bags Seth Seth used for Bag to Shante Frey MD procedure (1000units/500ml field NS) 9:24:51 Radial Cocktail added 1 Seth Seth used for (Verapomil to syringe Shante Frey MD procedure 2mg/Nitro field 400mcg/Heparin 1500units) 9:33:29 Versed I.V. 2 mg Seth Sarai for sedation Shante Romano RN 9:33:35 Fentanyl I.V. 50 mcg Seth Sarai for sedation Shante Romano RN 9:38:08 Versed I.V. 2 mg Seth Sarai for sedation Shante Romano RN 9:38:13 Fentanyl I.V. 50 mcg Seth Sarai for sedation Shante Romano RN 9:44:29 Heparin Bolus I.V. 4000 Seth Sarai for veri fied units Shante Romano anticoagulation with Dr. NAREN Frey 9:44:40 Versed I.V. 2 mg Seth Sarai for sedation veri fied Shante Romano with Dr. NAREN Frey 9:48:12 Brilinta P.O. 90 mg Seth Sarai for Shante Romano antiplatelet RN therapy Procedure Log Time Note 8:40:35 Viktor Yanez RT(R) sent for patient. Start room use. 8:49:36 Time tracking: Regular hours (M-F 7:00 - 5:00) 8:49:41 Plan of Care:Hemodynamics will remain stable., Cardiac rhythm will remain stable., Comfort level will be maintained., Respiratory function will remain adequate., Patient/ family verbilizes understanding of procedure., Procedure tolerated without complication., Recovers from procedure without complications.. 9:14:45 Patient received from Med II to CCL 1 Alert and oriented. Tansferred to table in Supine position. 9:14:58 Warm blankets applied, and antonio hugger turned on for patient comfort. 9:14:59 Correct patient and procedure confirmed by team. 9:15:03 Signed procedure consent form obtained from patient. 9:21:54 ECG and BP/O2 sat monitors applied to patient. 9:21:55 Vital chart was started 9:24:19 0.9% NaCl 100 ml/hr I.V. was administered by Sarai Romano RN; used for procedure; 9:24:27 Oxygen 2 l/min etCO2 Nasal cannula was administered by Sarai Romano RN; used for procedure; 9:24:32 Lidocaine 2% 20ml vial added to field was administered by Seth Frey MD; for local anesthetic; 9:24:40 Heparin Flush Bag (1000units/500ml NS) 2 bags added to field was administered by Seth Frey MD; used for procedure; 9:24:51 Radial Cocktail (Verapomil 2mg/Nitro 400mcg/Heparin 1500units) 1 syringe added to field was administered by Seth Frey MD; used for procedure; 9:28:21 Baseline sample Acquired. 9:28:24 Rhythm: sinus rhythm 9:28:26 Full Disclosure recording started 9:28:39 H&P Date Dictated: 04/06/2018 Within 30 days and on chart.. 9:28:40 Pre-procedure instructions explained to patient. 9:28:40 Pre-op teaching completed and patient verbalized understanding. 9:28:42 Family unavailable. 9:28:44 Patient NPO since Midnight. 9:28:53 Patient allergic to No known allergies 9:28:56 Is the patient allergic to Iodine/contrast media? No. 9:29:00 Is patient on blood thinner?Yes 9:29:03 ACC The patient was administered the following blood thiners within the last 24 hours: ACCBrilinta 9:29:04 Patient diabetic? Yes. 9:29:11 If diabetic: On Metformin? No 9:29:13 ----Pre-sedation anethsthesia assessment.---- 9:29:15 Previous problem with sedation/anesthesia? No ? 9:29:16 Snore? Yes 9:29:18 Sleep apnea? No 9:29:20 Deviated septum? No 9:29:21 Opens mouth fully? Yes 9:29:23 Sticks out tongue? Yes 9:29:35 Airway obstruction? No ? 9:30:53 Dentures? Yes IN 9:30:56 Pre procedure: right dorsailis pedis pulse 1+ Palpable, but thready & weak; easily obliterated 9:31:00 Modified Osman's test Ulnar < 7 seconds 9:31:03 Patient pain scale 0/10 ?. 9:31:15 IV patent on arrival in right forearm with 0.9% NaCl at 10ml/hr. 9::39 Lab Result : BUN 21 mg/dl 9::39 Lab Result : Hemoglobin 13.4 g/dl 9::39 Lab Result : Creatinine 1.1 mg/dl 9:31:42 Lab results completed and on chart. 9:31:46 Right Radial & Right Groin area was prepped with chlora-prep and draped in sterile fashion 9:31:47 Alarms reviewed by R. N. 9:31:48 Sharps counted by scrub and verified by R.N. 9:31:49 --------ALL STOP TIME OUT------ 9:31:53 Final Timeout: patient, procedure, and site verified with staff and physician. All members of the team are in agreement. 9:31:55 Right Radial & Right Groin site verified by team. 9:31:57 Physical assessment completed. ASA score P 2 - A patient with mild systemic disease as per Seth Frey MD. 9:32:01 Sedation plan: IV Moderate Sedation Medication:Versed, Fentanyl 9:32:08 Use device set Radial Dx or PCI 9:32:09 ACIST Syringe (53465) opened to sterile field. 9:32:10 Medline Cath Pack ([id number]) opened to sterile field. 9:32:10 Bag Decanter () opened to sterile field. 9:32:11 DIAGNOSTIC WIRE .035 260cm J wire (742381) opened to sterile field. 9:32:11 ACIST Hand Control (02695) opened to sterile field. 9:32:11 ACIST Manifold (71820) opened to sterile field. 9:32:12 Tegaderm 4 x 4 (1626W) opened to sterile field. 9:32:12 MBrace Wrist Support ([id number]) opened to sterile field. 9:32:14 NEEDLE Cook 21G 4cm Radial (A75744) opened to sterile field. 9:32:16 SHEATH 6FR Slender (36-1060) opened to sterile field. 9:33:29 Versed 2 mg I.V. was administered by Sarai Romano RN; for sedation; 9:33:35 Fentanyl 50 mcg I.V. was administered by Sarai Romano RN; for sedation; 9:36:04 Procedure started. 9:36:51 Local anesthetic to right radial artery with Lidocaine 2% by Seth Frey MD.INITIAL ACCESS ONLY 9:36:59 A 6 Fr Short sheath was inserted into the Right Radial artery 9:37:07 A DIAGNOSTIC Lemhi 110cm 5 Fr catheter (650326) was advanced over the wire and used for LV Angiography. 9:37:22 LV angiography performed. 9:37:33 Zero performed for pressure channel P1 9:38:08 Versed 2 mg I.V. was administered by Saari Romano RN; for sedation; 9:38:09 EF : 60 % 9:38:13 Fentanyl 50 mcg I.V. was administered by Sarai Romano RN; for sedation; 9:38:18 LV gram done using JERONIMO 9:38:24 RCA angiography performed. 9:38:39 Catheter removed. 9:39:00 GUIDE 6FR XBLAD 3.5 catheter ([id number]) opened to sterile field. 9:39:12 6 Fr XBLAD 3.5 guide catheter was inserted over the wire 9:40:00 LCA angiography performed. 9:40:29 Higginson [place] IVUS Catheter (86293R) opened to sterile field. 9:40:30 CHOICE PT Extra Support 182cm wire ([id number]) opened to sterile field. 9:40:30 INFLATOR Merit BasixCompak (PO2137) opened to sterile field. 9:42:24 CPTES wire advanced. 9:44:18 FFR/IVUS 9:44:19 IVUS catheter advanced over wire. 9:44:20 IVUS pass to LAD lesion performed. 9:44:21 IVUS catheter removed over wire. 9:44:29 Heparin Bolus 4000 units I.V. was administered by Sarai Romano RN; for anticoagulation; verified with Dr. Frey 9:44:40 Versed 2 mg I.V. was administered by Sarai Romano RN; for sedation; verified with Dr. Frey 9:44:57 Inflate balloon Inflation number: 1 A INTEGRITY RX 3.5 x 15 stent ([id number]) was prepped and advanced across the Mid LAD, then inflated to 13 SOFIA for 0:10 (min:sec). 9:45:06 Stent catheter was removed intact over wire. 9:45:07 Wire removed. 9:45:08 Guide catheter removed. 9:45:21 Sheath removed intact; hemostasis achieved with Mechanical Compression to the Right Radial artery. 9:45:23 Procedure ended.(Physican Out) 9:45:39 Fluoroscopy time 03.10 minutes. 9:45:47 Fluoroscopy dose: 877 mGy 9:45:47 Flurop Dose total: 877 9:45:51 Contrast amount:Isovue 300 88ml. 9:45:53 Sharps counted by scrub and verified by R.N. 9:45:55 TR band inflated with 10cc of air. 9:46:00 Post right radial artery:stable 9:46:02 Post Procedure Pulses reassessed and unchanged 9:46:07 Post-procedure physical assessment completed. ASA score P 2 - A patient with mild systemic disease as per Seth Frey MD. 9:46:10 Post procedure rhythm: sinus rhythm 9:46:11 Post procedure instruction explained to patient.Patient verbalizes understanding. 9:46:12 Procedure and supply charges have been captured, reviewed, submitted and are correct. 9:46:31 Procedure type changed to Cath procedure, Diagnostic procedure, LHC, LHC w/Coronaries, FFR/IVUS, Intra-Coronary IVUS Initial, PCI procedure, Coronary Stent, Coronary Stent Initial 9:46:38 Procedure Complication : No complications 9:46:40 Vital chart was stopped 9:46:42 See physician's report for complete and final results. 9:46:44 Report given to PCU. 9:46:49 Patient transfered to PCU with Bed. 9:47:18 TR BAND Standard ([id number]) opened to sterile field. 9:48:12 Brilinta 90 mg P.O. was administered by Sarai Romano RN; for antiplatelet therapy; 9:50:41 Procedure ended. 9:50:41 Full Disclosure recording stopped 9:50:44 End room use (Document Last) Intervention Summary Intervention Notes Time ActionType Lesion and Equipment Action# Pressure Duration Attributes Used 9:44:57 Inflate Mid LAD INTEGRITY RX 1 13 00:10 balloon 3.5 x 15 stent ([id number]) Device Usage Item Name Manufacture Quantity Catalog Number Hospital Part Current Mini mal Lot# / Charge Number Stock Stock Serial# Code ACIST Acist 1 66655 257081 100132 609464 20 Syringe Medical (06531) Systems Inc Medline Cath Medline 1 [id number] 094486 81386 545221 5 Pack ([id number]) Bag Decanter Microtek 1 2001S 172294 24636 006302 5 () Medical Inc. DIAGNOSTIC St Ángel 1 807243 329567 525745 021781 30 WIRE .035 260cm J wire (849820) ACIST Hand Acist 1 47059 591151 771260 506333 5 Control Medical (72489) Systems Inc ACIST Acist 1 48154 681746 631525 805891 5 Manifold Medical (17480) Systems Inc Tegaderm 4 x 3M 1 1626W 453076 326031 820525 5 4 (1626W) MBrace Wrist Advanced 1 140-0250-00 571313 87490 743959 5 Support Vascular (946212301) Dynamics NEEDLE Cook Cook Medical 1 Z83257 755666 926068 954369 5 21G 4cm Radial (V96630) SHEATH 6FR Terumo 1 [id number] 194650 908344 514603 5 Slender (80-1060) DIAGNOSTIC Terumo 1 40-8123 818234 829494 838732 5 Lemhi 110cm 5 Fr catheter (437762) GUIDE 6FR Cardinal 1 [id number] 876439 808271 026388 10 XBLAD 3.5 Health catheter (97957356) Higginson Higginson 1 27338X 680742 853959 038832 8 [place] IVUS Catheter (45349G) CHOICE PT [place] 1 [id number] 971474 245003 064911 5 Extra Scientific Support 182cm wire (3279538N3) INFLATOR Merit 1 RR6838 084203 687168 906520 15 [facility] Medical BasixCompak (GS8822) INTEGRITY RX Medtronic 1 [id number] 441904 682973 699419 5 [id number] 3.5 x 15 stent ([id number]) TR BAND Terumo 1 QLE07-STF 936462 902398 963560 40 Standard ([id number]) Signature Audit [place] Stage Time Signature Unsigned Intra-Procedure 04/07/2018 Jemal Ordoñez RT([place]) 9:51:29 AM Signatures Monitor : Viktor Yanez RT Signature : Date : Time : [place] [id number] [place] [id number]
--- NOTE | ~2018-04-06 | OP ---
PATIENT NAME: WALTER YUAN MEDICAL RECORD: [id number] :64 LOCATION:D.M2 D.2124 ADMISSION DATE:04/06/18 SURGEON: ANDREA HERNANDEZ MD DATE OF OPERATION: 04/07/2018 PROCEDURES: 1. PTCA and stent, LAD. 2. Intravascular ultrasound. 3. Left heart catheterization. 4. Selective coronary angiography. 5. Left ventriculogram. INDICATION: Unstable angina. PROCEDURE IN DETAIL: After informed consent was obtained with detailed description of risks and benefits as well as alternative therapies, the patient elected to proceed with angiogram and angioplasty. The right radial area was prepped and draped in normal sterile fashion. The right radial artery was cannulated via modified Seldinger technique with placement of 6-Palestinian sheath. All catheters were exchanged through this sheath. FINDINGS: Left ventriculogram performed in standard 30-degree JERONIMO view reveals good cardiac wall motion throughout all segments. Overall ejection fraction estimated at 60%. SELECTIVE CORONARY ANGIOGRAPHY: 1. Left main is with no significant angiographic disease. 2. Left anterior descending has a previously placed stent in the proximal vessel. After this, intravascular ultrasound reveals there is greater than 75% stenosis. 3. Left circumflex has moderate irregularities, but no flow-limiting stenosis. 4. Right coronary has previously placed stent. This is widely patent with no significant restenosis. No disease else diaz at the RCA or its branches. PTCA AND STENT OF THE LAD: The stent used was 3.5 x 15-mm Integrity. Result was 0% residual stenosis. OVERALL IMPRESSION: Successful PTCA and stent of the LAD going from greater than 75% initial stenosis to 0% residual. TRANSINT:[id number] Voice Confirmation ID: [id number] DOCUMENT ID: [id number] ANDREA HERNANDEZ MD CC: [id number] DICTATION DATE: 04/07/18 0949 RN PERIOPERATIVE: 04/07/18 1117 ADM IN [facility] [address] [place] [address]
--- NOTE | ~2018-04-06 | MORECARE ---
CASE MANAGEMENT DISCHARGE SUMMARY PATIENT: WALTER YUAN UNIT: [id number] ADM DATE: 04/06/18 AGE: 57 : 64 SEX: F ROOM/BED: D.7294 AUTHOR: ROSEMARY GOSS PHYSICIAN: REFERRING PHYSICIAN: HARDIK MCGOWAN MD DATE OF SERVICE: 04/08/18 Discharge Plan Patient Name: WALTER YUAN Facility: [facility]:Noel : 1960 Planned Disposition: Home Anticipated Discharge Date: 04/07/18 Discharge Date: 04/07/2018 Expected LOS: 1 Initial Reviewer: [email or web address] Initial Review Date: 04/08/2018 Generated: 04/08/18 8:45 am Patient Name: WALTER YUAN Page 31001 at 0745 All edits/amendments must be made on the electronic document DICTATION DATE: 04/08/1845 HUMAN RESOURCES PROJECT MANAGER: SUMA 04/08/1845 RPT#: [id number] DC DATE:04/07/18 STATUS: DIS IN [facility] [address] [facility] [place] [address] END OF REPORT
--- NOTE | ~2018-04-06 | EC ---
PATIENT:WALTER YUAN DATE OF SERVICE: 04/06/18 SEX: F MEDICAL RECORD: [id number] DATE OF : 64 LOCATION:D. D.212 AGE OF PATIENT: 57 ADMISSION DATE: 04/06/18 REFERRING PHYSICIAN: INTERPRETING PHYSICIAN: ANDREA FREY MD ECHOCARDIOGRAM REPORT ECHO CHARGES 4 ECHO COMPLETE Date: 04/07/18 CLINICAL DIAGNOSIS: ECHOCARDIOGRAPHIC MEASUREMENTS (adult normal given) AC root (d.<3.7cm) 3.8 cm LV Septum d (<1.2 cm> 1.1 cm Valve Excursion 1.9 cm LV Septum (systole) 1.5 cm Left Atria (s.<4.0cm> 3.7 cm LVPW d(<1.2cm) 1.1 cm RV (d.<2.3cm) 2.8 cm LVPW (sytole) 1.6 cm LV diastole(<5.6CM) 5.0 cm MV E-F(>70mm/sec) cm LV systole 4.4 cm LVOT Diameter 1.9 cm MV exc.(>10mm) cm Est.ejection fraction (50-75%) % DOPPLER: LVIT cm/sec A 78 cm/sec E 75 cm/sec LA cm/sec RVSP 32.8 mmHg LVOT 102 cm/sec AOP1/2T m/s Asc. Ao 140 cm/sec RVOT 52 cm/sec RA cm/sec PA 83 cm/sec AV Gradient Peak 7.8 mmHg AV Mean 4.2 mmHg AV Area 2.2 cm MV Gradient Peak 3.5 mmHg MV Mean 1.5 mmHg MV Area cm COMMENTS: Group Managing Director: Rian HYDE Bed Setter: 1 Dr. Frey TAPE# PACS Pericardial Effusion N DATE OF SERVICE: 04/07/2018 FINDINGS: 1. Left ventricular chamber size is within normal limits. Left ventricular systolic function is normal. Overall ejection fraction is estimated at 60%. 2. Left atrium, right atrium, and right ventricle chamber sizes are within normal limit. 3. Valvular structures have normal structure and motion. 4. Doppler interrogation reveals only mild tricuspid regurgitation. No other valvular insufficiency or stenosis. Pulmonary systolic pressure is estimated at ECHOCARDIOGRAM REPORT [id number] WALTER YUAN 33 mmHg. 5. No evidence of pericardial effusion or left ventricular thrombus. TRANSINT:[id number] Voice Confirmation ID: [id number] DOCUMENT ID: [id number] ANDREA FREY MD CC: [id number] DICTATION DATE: 04/08/181117 DIRECTOR DIETETICS DEPARTMENT: 04/08/18 1133 DIS IN 04/07/18 [facility] [address] [place] [id number]
[2018-04-06 20:53] LABS: BASOPHILS 0.2 % (0-2); EOSINOPHILS 1.9 % (0-7); HEMOGLOBIN 13.4 g/dL (12-16); IMMATURE GRANULOCYTES 0.2 % (0-5); LYMPHOCYTES 30.5 % (15-50); MCH 27.9 pg (26.0-34.0); MCHC 32.7 g/dL (31.0-37.0); MCV 85.2 fL (80.0-100.0); MEAN PLATELET VOLUME 10.3 fL (7.4-10.4); NEUTROPHILS 60.2 % (40-80); PLATELET COUNT 275 10x3/uL (130-400); RBC 4.81 10x6/uL (4.00-5.40); RDW 14.4 % (11.5-14.5); WBC 8.6 10x3/uL (4.8-10.8)
[2018-04-06 21:02] LABS: INR 0.91 (0.85-1.17); PROTIME 11.8 SECONDS (11.6-15.0)
[2018-04-06 21:21] LABS: ALBUMIN 3.3 g/dL (3.4-5.0); ALKALINE PHOSPHATASE 125 U/L (46-116); ALT (SGPT) 22 U/L (10-68); BILIRUBIN - TOTAL 0.24 mg/dL (0.2-1.3); CALC OSMOLALITY 287 mosm/kg (275-300); CALCIUM 8.4 mg/dL (8.5-10.1); CARBON DIOXIDE 26.8 mmol/L (21.0-32.0); CHLORIDE - SERUM 103 mmol/L (98-107); CREATININE - SERUM 1.1 mg/dL (0.6-1.3); GLUCOSE 199 mg/dL (74-106); POTASSIUM - SERUM 3.9 mmol/L (3.5-5.1); PROTEIN - SERUM 7.5 g/dL (6.4-8.2); SODIUM 140 mmol/L (136-145); UREA NITROGEN 21 mg/dL (7-18); eGFR NON AFRICAN AMERICAN 55 mL/min (90-120)
[2018-04-06 21:29] LABS: CREATINE KINASE 147 UL (21-215); PRO BNP 392 pg/mL (0-125)
[2018-04-06 21:31] LABS: TROPONIN-I < 0.017 ng/mL (0.000-0.060)
[2018-04-07] VITALS: BP 140/79
[2018-04-07 00:05] VITALS: BP 140/79; BMI 53.9
[2018-04-07] MEDS ORDERED: TOUJEO SOL300 UNIT/1 SC (00:25)
[2018-04-07] MEDS ORDERED: ADVIL200 MG PO (00:25)
[2018-04-07] MEDS ORDERED: NOVOLOG100 UNIT/1 SQ ×4 (00:30→00:33)
[2018-04-07 04:00] VITALS: BP 104/39
[2018-04-07 08:40] VITALS: Ht 165.1 cm; Wt 147.2 kg
[2018-04-07 09:09] LABS: BASOPHILS 0.2 % (0-2); EOSINOPHILS 1.9 % (0-7); HEMATOCRIT 37.4 % (36.0-48.0); HEMOGLOBIN 11.9 g/dL (12-16); IMMATURE GRANULOCYTES 0.2 % (0-5); LYMPHOCYTES 25.5 % (15-50); MCH 27.5 pg (26.0-34.0); MCHC 31.8 g/dL (31.0-37.0); MCV 86.4 fL (80.0-100.0); MEAN PLATELET VOLUME 10.8 fL (7.4-10.4); MONOCYTES 7.5 % (2-11); NEUTROPHILS 64.7 % (40-80); PLATELET COUNT 249 10x3/uL (130-400); RBC 4.33 10x6/uL (4.00-5.40); RDW 14.8 % (11.5-14.5); WBC 9.3 10x3/uL (4.8-10.8)
[2018-04-07 09:13] LABS: ANION GAP 18.8 mmol/L (8-16); CALCIUM 8.7 mg/dL (8.5-10.1); CARBON DIOXIDE 22.3 mmol/L (21.0-32.0); CREATININE - SERUM 0.9 mg/dL (0.6-1.3); POTASSIUM - SERUM 4.1 mmol/L (3.5-5.1)
== END 2018-04-07 16:46 | disposition home or self-care (01) ==
LOC: D.ER 20:15 → D.M2 21:51 → D.EDHOLD 21:51 → OBSVTIME 21:51 → D.M2 22:19
PROVIDERS: Family Medicine; Internal Medicine Interventional Cardiology
DX: I25.119 Atherosclerotic heart disease of native coronary artery with unspecified angina pectoris (principal); E11.65 Type 2 diabetes mellitus with hyperglycemia; I10 Essential (primary) hypertension; Z87.891 Personal history of nicotine dependence

== ENCOUNTER 2018-11-12 02:38 | Emergency (ER) | payer MEDICARE, MEDICAID ==
[~2018-11-12] VITALS: Ht 165.1 cm; Wt 150.0 kg
[~2018-11-12 02:38] MED LIST changes: +ADVIL200 MG PO; +NOVOLOG100 UNIT/1 SQ; +TOUJEO SOL300 UNIT/1 SC
[2018-11-12 02:46] VITALS: Ht 165.1 cm; Wt 150.0 kg
[2018-11-12] MEDS ORDERED: TRESIBA FL100 UNIT/1 SC (02:48)
[2018-11-12] MEDS ORDERED: LIPITOR20 MG PO (02:49)
[2018-11-12] MEDS ORDERED: CYCLOBENZAPRINE10 MG PO (02:49)
[2018-11-12 03:14] LABS: BASOPHILS 0.4 % (0-2); EOSINOPHILS 2.4 % (0-7); HEMATOCRIT 41.9 % (36.0-48.0); HEMOGLOBIN 14.4 g/dL (12-16); IMMATURE GRANULOCYTES 0.1 % (0-5); MCH 27.4 pg (26.0-34.0); MCHC 34.4 g/dL (31.0-37.0); MCV 79.8 fL (80.0-100.0); MONOCYTES 9.1 % (2-11); PLATELET COUNT 293 10x3/uL (130-400); RBC 5.25 10x6/uL (4.00-5.40); RDW 14.9 % (11.5-14.5); WBC 9.1 10x3/uL (4.8-10.8)
[2018-11-12 03:32] LABS: ALBUMIN 3.4 g/dL (3.4-5.0); ALKALINE PHOSPHATASE 134 U/L (46-116); ALT (SGPT) 29 U/L (10-68); BILIRUBIN - TOTAL 0.31 mg/dL (0.2-1.3); CALC OSMOLALITY 278 mosm/kg (275-300); CALCIUM 9.1 mg/dL (8.5-10.1); CHLORIDE - SERUM 106 mmol/L (98-107); CREATININE - SERUM 0.9 mg/dL (0.6-1.3); GLUCOSE 80 mg/dL (74-106); POTASSIUM - SERUM 4.1 mmol/L (3.5-5.1); PROTEIN - SERUM 7.3 g/dL (6.4-8.2); SODIUM 138 mmol/L (136-145); UREA NITROGEN 24 mg/dL (7-18); eGFR NON AFRICAN AMERICAN 69 mL/min (90-120)
[2018-11-12 03:35] LABS: AMYLASE - SERUM 55 U/L (25-115); LIPASE 87 U/L (73-393)
[2018-11-12 03:37] LABS: TROPONIN-I < 0.017 ng/mL (0.000-0.060)
[2018-11-12 05:09] LABS: APPEARANCE CLEAR (CLEAR); BILIRUBIN NEGATIVE (NEGATIVE); COLOR YELLOW (YELLOW); GLUCOSE NEGATIVE (NEGATIVE); KETONE NEGATIVE (NEGATIVE); NITRITE POSITIVE (NEGATIVE); PROTEIN NEGATIVE (NEGATIVE); SPECIFIC GRAVITY 1.005 (1.005-1.020); UROBILINOGEN NORMAL (NORMAL)
[2018-11-12 05:10] LABS: BACTERIA MANY /hpf (NONE SEEN); EPITHELIAL CELLS 0-5 /hpf (0-5); RED CELLS - URINE 0-5 /hpf (0-5); WHITE CELLS - URINE 0-5 /hpf (0-5)
[2018-11-12] MEDS ORDERED: MACROBID100 MG PO (06:59)
[2018-11-12] MEDS ORDERED: PROMETHAZINE W473 ML PO (06:59)
[2018-11-12 08:13] VITALS: BP 157/90
== END 2018-11-12 08:10 | disposition home or self-care (01) ==
LOC: D.ER 02:38
PROVIDERS: Family Medicine
DX: N39.0 Urinary tract infection, site not specified (principal); K80.20 Calculus of gallbladder without cholecystitis without obstruction

== ENCOUNTER → 2019-06-23 09:30 | Outpatient (CLI) | payer MEDICARE, MEDICAID ==
[2018-11-12 02:46] VITALS: BMI 55.0
[~2019-06-23 09:30] MED LIST changes: +CYCLOBENZAPRINE10 MG PO; +LIPITOR20 MG PO; +MACROBID100 MG PO; +PROMETHAZINE W473 ML PO; +TRESIBA FL100 UNIT/1 SC
--- NOTE | 2019-06-25 16:48 | EC ---
PATIENT:WALTER CONN DATE OF SERVICE: 06/23/19 SEX: F MEDICAL RECORD: [id number] DATE OF : 64 [facility]: 58 ADMISSION DATE: 06/23/19 REFERRING PHYSICIAN: INTERPRETING PHYSICIAN: ANDREA FREY MD ECHOCARDIOGRAM REPORT ECHO CHARGES 4 ECHO COMPLETE Date: 06/23/19 CLINICAL DIAGNOSIS: CAD/ASSESS EF ECHOCARDIOGRAPHIC MEASUREMENTS (adult normal given) AC root (d.<3.7cm) 3.9 cm LV Septum d (<1.2 cm> 1.2 cm Valve Excursion 1.4 cm LV Septum (systole) 1.4 cm Left Atria (s.<4.0cm> 4.0 cm LVPW d(<1.2cm) 1.4 cm RV (d.<2.3cm) 5.3 cm LVPW (sytole) 1.5 cm LV diastole(<5.6CM) 4.6 cm MV E-F(>70mm/sec) cm LV systole 3.4 cm LVOT Diameter 1.7 cm MV exc.(>10mm) cm Est.ejection fraction (50-75%) % DOPPLER: LVIT cm/sec A 94.0 cm/sec E 58.0 cm/sec LA cm/sec RVSP 17 mmHg LVOT 90 cm/sec AOP1/2T m/s Asc. Ao 139 cm/sec RVOT cm/sec RA cm/sec PA cm/sec AV Gradient Peak 7.74 mmHg AV Mean 4.23 mmHg AV Area 1.5 cm MV Gradient Peak 3.41 mmHg MV Mean 1.64 mmHg MV Area cm COMMENTS: Disposition Clerk: Ambrose STAHL Security System Analyst: 1 Dr. Frey TAPE# PACS Pericardial Effusion N DATE OF SERVICE: FINDINGS: 1. Left ventricular chamber size is within normal limits. Left ventricular systolic function is normal at 55%. 2. Left atrium upper limits of normal at 4.0 cm. Right atrium and right ventricular chamber sizes are mildly dilated. 3. Valvular structures have normal structure and motion. 4. Doppler interrogation reveals no significant valvular insufficiency or stenosis. ECHOCARDIOGRAM REPORT [id number] WALTER CONN 5. No evidence of pericardial effusion or left ventricular thrombus. TRANSINT:[id number] Voice Confirmation ID: [id number] DOCUMENT ID: [id number] ANDREA FREY MD at 1648 CC: [id number] DICTATION DATE: 06/23/19 1150 CAT SITTER: 06/23/19 1524 DEP CLI 06/23/19 [place] [id number] [place] [id number]
== END | disposition home or self-care (01) ==
LOC: D.HCCARDIO 09:30 → D.HCCECHO 10:30
PROVIDERS: ATTEND Internal Medicine Cardiovascular Disease
DX: I10 Essential (primary) hypertension (principal); I25.10 Atherosclerotic heart disease of native coronary artery without angina pectoris

== ENCOUNTER 2019-07-01 11:37 | Outpatient (CLI) | payer MEDICARE, MEDICAID ==
[~2019-07-01] VITALS: Ht 165.1 cm; Wt 155.9 kg
--- NOTE | ~2019-07-01 | HEMODYNAMI ---
PATIENT:WALTER CONN MEDICAL RECORD: [id number] : 64 LOCATION:[facility] ADMISSION DATE: 07/01/19 Generatedon:07/01/201916:01 Patient name: WALTER CONN Patient #: [id number] SSN: [id number] : 1960 Date of study: 07/01/2019 Page: Of Hemodynamic Procedure Report Patient Data Patient Demographics Procedure consent was obtained First Name: WALTER Gender: Female Last Name: SENIA : 1960 Middle Initial: ADDIE Age: 58 year(s) Patient #: [id number] Race: SSN: [id number] Additional ID: [id number] Contact details Address: [address] [place] [address] State: [place] City: [place] Zip code: [address] Past Medical History Allergies: No known allergies Admission Admission Data Admission Date: 07/01/2019 Admission Time: 11:37 Arrival Date: 07/01/2019 Arrival Time: 0:00 Insurance Payor: Medicare [facility] #: [id number] Height (in.): 64.96 BSA: 2.49 (m2) Height (cm.): 165 BMI: 57.3 (kg/m2) Weight (lbs.): 343.92 Weight (kg.): 156 Lab Results Lab Result Date: 07/01/2019 Lab Result Time: 0:00 Biochemistry Name Units Result Min Max BUN mg/dl 15 --(--*-)-- 7 18 Creatinine mg/dl 0.8 --(-*--)-- 0.6 1.3 eGFR ml/min 78 *-(----)-- 90 120 NONAFRICAN CBC Name Units Result Min Max Hematocrit % 41.9 -*(----)-- 42 54 Hemoglobin g/dl 13.8 --(*---)-- 13.5 17.5 Procedure Procedure Types Cath Procedure Diagnostic Procedure C [facility] w/Coronaries Sedation Charges Moderate Sedation up to 15 minutes Procedure Description Procedure Date Procedure Date: 07/01/2019 Procedure Start Time: 15:40 Procedure End Time: 15:59 Procedure Staff Name Function Sancho Seth MD Performing Physician Sidra Lyles RT Monitor Rylan Arango RN Nurse Cristin Peterson RT Scrub Sarai Romano RN Monitor Indication Chest pain Procedure Data Cath Procedure Fluoroscopy Diagnostic fluoroscopy Total fluoroscopy Time: 6.8 time: 6.8 min min Diagnostic fluoroscopy Total fluoroscopy dose: dose: 1098 mGy 1098 mGy Contrast Material Contrast Material Type Amount (ml) Isovue 300 70 Entry Location Entry Primary Successful Side Size Upsize Upsize Entry Closure Sorensen ccessful Closure Location (Fr) 1 (Fr) 2 (Fr) Remarks Device Remarks Radial Right 6 Fr Manual artery Short Compression Estimated blood loss: 5 ml Diagnostic catheters Device Type Used For End Catheter Placement DIAGNOSTIC [place] 110cm 5 Procedure Fr catheter ([id number]) DIAGNOSTIC AR MOD 5Fr Procedure Catheter ([id number]) Procedure Complications No complications Procedure Medications Medication Administration Route Dosage 0.9% NaCl I.V. 100 ml/hr Oxygen etCO2 Nasal cannula 2 l/min Heparin Flush Bag added to field 2 bags (1000units/500ml NS) Lidocaine 2% added to field 20 Radial Cocktail added to field 1 syringe (Verapamil 2mg/Nitro 400mcg/Heparin 1500units) Versed I.V. 2 mg Fentanyl I.V. 100 mcg Versed I.V. 1 mg Fentanyl I.V. 50 mcg Versed I.V. 1 mg Hemodynamics Rest BSA: 2.49 (m2) HGB: 13.8 (g/dl) O2 Consumption: Estimated: 256.7 (ml/min) O2 Con sumption indexed: Estimated:103.09 (ml/min/m) Heart Rate: 89 (bpm) Pressure Samples Time Site Value (mmHg) Purpose Heart Use Rate(bpm) 15:46 LV 132/-7,5 Snapshot 86 15:46 AO 114/68(86) Pullback 89 15:46 LV 128/-5,2 Pullback 89 Gradients Valve Time Site 1 Site 2 Mean SEP/DFP Peak To Heart Use (mmHg) (sec/min) Peak Rate (mmHg) (bpm) Aortic 15:46 LV AO 10 20 14 89 128/-5,2 114/68(86) Calculations Valve P-P Mean Valve Index Valve Source Name Gradient Area Flow (cm2) Aortic 14 10 14 10 Snapshots Pre Cath Intra NCS Post Cath Vital Signs Time Heart Resp SPO2 etCO2 NIBP (mmHg) Rhythm Pain Sedation Rate (ipm) (%) (mmHg) Status Level (bpm) 15:24:47 93 24 96 0 139/85(114) NSR 0 (11) 10(A) , No pain 15:29:17 89 24 96 28.4 140/82(110) NSR 0 (11) 10(A) , No pain 15:33:46 90 21 95 34.4 128/82(101) NSR 0 (11) 10(A) , No pain 15:38:12 90 21 92 33.6 122/77(93) NSR 0 (11) 10(A) , No pain 15:42:36 93 18 93 10.4 116/65(93) NSR 0 (11) 10(A) , No pain 15:48:04 93 17 92 33.6 129/67(80) NSR 0 (11) 9(A) , No pain 15:52:30 93 19 91 35.8 117/69(90) NSR 0 (11) 9(A) , No pain 15:56:54 91 21 93 31.3 118/69(91) NSR 0 (11) 10(A) , No pain Medications Time Medication Route Dose Verified Delivered Reason Notes E ffectiveness by by 15:29:46 0.9% NaCl I.V. 100 Rylan Rylan Per ml/hr Conchita Arango physician RN RN 15:29:55 Oxygen etCO2 2 l/min Rylan Rylan for low 02 Nasal Lorigan Lorigan sats cannula RN RN 15:30:06 Heparin Flush added 2 bags Rylan Rylan used for Bag to Lorigan Lorigan procedure (1000units/500ml field RN RN NS) 15:30:29 Lidocaine 2% added 20ml Rylan Rylan for local to vial Lorigan Lorigan anesthetic field RN RN 15:30:52 Radial Cocktail added 1 Rylan Rylan used for (Verapamil to syringe Lorigan Lorigan procedure 2mg/Nitro field RN RN 400mcg/Heparin 1500units) 15:39:39 Versed I.V. 2 mg Rylan Rylan for Lorigan Lorigan sedation RN RN 15:39:46 Fentanyl I.V. 100 mcg Rylan Rylan for Lorigan Lorigan sedation RN RN 15:41:00 Versed I.V. 1 mg Rylan Rylan for Lorigan Lorigan sedation RN RN 15:41:06 Fentanyl I.V. 50 mcg Rylan Rylan for Lorigan Lorigan sedation RN RN 15:44:21 Versed I.V. 1 mg Rylan Rylan for Lorigan Lorigan sedation RN supervisor insulation Log Time Note 15:07:18 Informed consent obtained and on chart 15:10:48 Indication : Chest pain 15:10:58 Procedure Status Elective Heart Cath (OP). 15:11:01 Rylan Arango RN sent for patient. Start room use. 15:11:04 Time tracking: Regular hours (M-F 7:00 - 5:00) 15:11:12 Plan of Care:Hemodynamics will remain stable., Cardiac rhythm will remain stable., Comfort level will be maintained., Respiratory function will remain adequate., Patient/ family verbilizes understanding of procedure., Procedure tolerated without complication., Recovers from procedure without complications.. 15:11:26 Arrival Date: 07/01/2019 12:00:00 AM 15:11:38 Insurance Payor : Medicare 15:12:07 Patient Height : 64.96 inches 15:12:12 Patient Weight : 343.92 lbs 15:13:21 Lab Result : BUN 15 mg/dl 15:13:21 Lab Result : eGFR NONAFRICAN 78 ml/min 15:13:21 Lab Result : Creatinine 0.8 mg/dl 15:13:21 Lab Result : Hematocrit 41.9 % 15:13:21 Lab Result : Hemoglobin 13.8 g/dl 15:14:05 Stress Test: yes; abnormal inferior 15:14:10 Lab results completed and on chart. 15:14:28 Patient allergic to No known allergies 15:15:03 Patient received from Pre/Post Procedure Room to CCL 1 Alert and oriented. Tansferred to table in Supine position. 15:15:05 Warm blankets applied, and antonio hugger turned on for patient comfort. 15:15:06 Correct patient and procedure confirmed by team. 15:15:07 ECG and BP/O2 sat monitors applied to patient. 15:21:49 H&P Date Dictated: 06/11/2019 Within 30 days and on chart.. 15:21:51 Pre-procedure instructions explained to patient. 15:21:52 Pre-op teaching completed and patient verbalized understanding. 15:21:56 Family in waiting room. 15:21:59 Patient NPO since Midnight. 15:22:01 Is the patient allergic to Iodine/contrast media? No. 15:22:16 Risk of Mortality: 0.1 15:22:19 Risk of blood transfusion: 0.5 15:22:22 Risk of BC: 0.1 15:22:26 Right Radial & Right Groin area was prepped with chlora-prep and draped in sterile fashion 15:22:27 Alarms reviewed by R. N. 15:22:28 Sharps counted by scrub and verified by R.N. 15:22:33 Pre procedure: right dorsailis pedis pulse 2+ Normal; easily identifiable; not easily obliterated 15:22:35 Modified Osman's test Ulnar < 7 seconds 15:22:38 Patient pain scale 0/10 ?. 15:22:47 IV patent on arrival in left antecubital with 0.9% NaCl at [facility]. 15::52 ----Pre-sedation anethsthesia assessment.---- 15:22:55 Previous problem with sedation/anesthesia? No ? 15:22:56 Snore? Yes 15:22:58 Sleep apnea? No 15::59 Deviated septum? No 15:23:00 Opens mouth fully? Yes 15:23:01 Sticks out tongue? Yes 15:23:02 Airway obstruction? No ? 15:23:04 Dentures? No ? 15:23:06 Patient diabetic? Yes. 15:23:08 If diabetic: On Metformin? No 15:23:10 Patient not . Patient is over age 55. 15:23:14 Was the patient premedicated? N/A 15:23:17 Is patient on blood thinner?No 15:23:19 Full Disclosure recording started 15:23:21 Vital chart was started 15:29:46 0.9% NaCl 100 ml/hr I.V. was administered by Rylan Arango RN; Per physician; Verbal order read back and verified. 15:29:55 Oxygen 2 l/min etCO2 Nasal cannula was administered by Rylan Arango RN; for low 02 sats; Verbal order read back and verified. 15:30:06 Heparin Flush Bag (1000units/500ml NS) 2 bags added to field was administered by Rylan Arango RN; used for procedure; Verbal order read back and verified. 15:30:28 Baseline sample Acquired. 15:30:29 Lidocaine 2% 20ml vial added to field was administered by Rylan Arango RN; for local anesthetic; Verbal order read back and verified. 15:30:33 Use device set Radial Dx or PCI 15:30:34 ACIST Syringe (44646) opened to sterile field. 15:30:35 Medline Cath Pack ([id number]) opened to sterile field. 15:30:36 Bag Decanter (2002) opened to sterile field. 15:30:36 ACIST Hand Control (69128) opened to sterile field. 15:30:37 ACIST Manifold (51292) opened to sterile field. 15:30:38 MBrace Wrist Support ([id number]) opened to sterile field. 15:30:39 NEEDLE Cook 21G 4cm Radial ([id number]) opened to sterile field. 15:30:41 EMERALD Guide Wire (308-035) opened to sterile field. 15:30:42 SHEATH 6FR RAIN (7258892) opened to sterile field. 15:30:52 Radial Cocktail (Verapamil 2mg/Nitro 400mcg/Heparin 1500units) 1 syringe added to field was administered by Rylan Arango RN; used for procedure; Verbal order read back and verified. 15:31:29 Rhythm: sinus rhythm 15:36:31 --------ALL STOP TIME OUT------ 15:36:31 Final Timeout: patient, procedure, and site verified with staff and physician. All members of the team are in agreement. 15:36:33 Right Radial & Right Groin site verified by team. 15:36:37 Fire Safety Assessment: A--An alcohol-based skin anteseptic being used preoperatively., C--Open oxygen or nitrous oxide is being used., D--An ESU, laser, or fiber-optic light is being used. 15:36:41 Physical assessment completed. ASA score P 2 - A patient with mild systemic disease as per Sancho Seth MD. 15:36:46 2) 60-89 Mildly reduced kidney function, and other findings (as for stage 1) point to kidney disease. 15:36:50 Maximum allowable contrast dose (3.7 X eGFR X 0.75)216 ml. 15:36:54 Sedation plan: IV Moderate Sedation Medication:Versed, Fentanyl 15:39:39 Versed 2 mg I.V. was administered by Rylan Arango RN; for sedation; Verbal order read back and verified. 15:39:46 Fentanyl 100 mcg I.V. was administered by Rylan Arango RN; for sedation; Verbal order read back and verified. 15:39:58 Procedure started. 15:40:51 Local anesthetic to right radial artery with Lidocaine 2% by Sancho Seth MD.INITIAL ACCESS ONLY 15:41:00 Versed 1 mg I.V. was administered by Rylan Arango RN; for sedation; Verbal order read back and verified. 15:41:06 Fentanyl 50 mcg I.V. was administered by Rylan Arango RN; for sedation; Verbal order read back and verified. 15:42:37 A 6 Fr Short sheath was inserted into the Right Radial artery 15:43:56 A DIAGNOSTIC [place] 110cm 5 Fr catheter (090036) was advanced over the wire and used for Procedure. 15:44:21 Versed 1 mg I.V. was administered by Rylan Arango RN; for sedation; Verbal order read back and verified. 15:46:18 LV gram done using JERONIMO 15:46:24 EF : 55 % 15:46:25 LV hemodynamics recorded. 15:46:39 Injector settings: Ml/sec: 5, Volume: 15, 15:50:04 LCA angiography performed. 15:52:35 Catheter exchanged over wire. 15:52:44 A DIAGNOSTIC AR MOD 5Fr Catheter ([id number]) was advanced over the wire and used for Procedure. 15:55:29 RCA angiography performed. 15:56:22 Catheter removed. 15:56:52 Sheath removed intact; hemostasis achieved with Manual Compression to the Right Radial artery. 15:56:55 Procedure ended.(Physican Out) 15:57:18 Fluoroscopy time 06.80 minutes. 15:57:22 Flurop Dose total: 1098 15:57:22 Fluoroscopy dose: 1098 mGy 15:57:26 Dose Area Product 49576 mGy/cm. 15:57:36 Contrast amount:Isovue 300 70ml. 15:57:40 Maximum allowable dose exceeded? No. 15:57:43 Sharps counted by scrub and verified by R.N. 15:57:48 Breezewood band inflated with 10cc of air. 15:57:52 Insertion/operative site no bleeding no hematoma. 15:58:04 Post right radial artery:stable, soft, clean and dry 15:58:05 Post Procedure Pulses reassessed and unchanged 15:58:09 Post procedure: right radial pulse 2+ Normal; easily identifiable; not easily obliterated. 15:58:13 Post-procedure physical assessment completed. ASA score P 2 - A patient with mild systemic disease as per Sancho Seth MD. 15:58:15 Post procedure rhythm: unchanged. 15:58:17 Estimated blood loss: 5 ml 15:58:18 Post procedure instruction explained to patient.Patient verbalizes understanding. 15:58:19 Patient needs reinforcement of post procedure teaching. 15:58:45 Procedure type changed to Cath procedure, Diagnostic procedure, LHC, C w/Coronaries, Sedation Charges, Moderate Sedation up to 15 minutes 15:58:46 Procedure and supply charges have been captured, reviewed, submitted and are correct. 15:58:50 Procedure Complication : No complications 15:58:52 Vital chart was stopped 15:58:54 [facility] Findings: mild to moderate CAD (<70%) 15:58:55 Operative report dictated upon procedure completion. 15:58:56 See physician's report for complete and final results. 15:58:57 Report given to Pre/Post Procedure Room. 15:59:00 Patient transfered to Pre/Post Procedure Room with Stretcher. 15:59:02 Procedure ended. 15:59:02 Full Disclosure recording stopped 15:59:20 ZEPHYR REGULAR TR BAND (744820) opened to sterile field. 15:59:54 End room use (Document Last) 16:00:14 Diagnostic Cath Status : Elective Device Usage Item Name Manufacture Quantity Catalog Hospital Part Current Minima l Lot# / Number Charge Number Stock Stock Serial# Code ACIST Acist 1 16490 201692 [id number] [id number] 20 Syringe Marketecture (16326) Bouncefootball Inc Medline Medline 1 [id number] 155816 74839 050707 5 Cath Pack ([id number]) Bag Microtek 1 637090 93806 589023 5 Decanter Medical Inc. () ACIST Hand Acist 1 59970 210039 972396 967431 5 Control Medical (76110) Systems Inc ACIST Acist 1 16658 986393 999727 787073 5 Manifold Medical (44369) Systems Inc MBrace Advanced 1 140-0250-00 082478 83311 710837 5 Wrist Vascular Support Dynamics ([id number]) NEEDLE Cook Cook Medical 1 [id number] 520635 824250 783056 5 21G 4cm Radial (G30251) EMERALD Cardinal 1 502-455 371446 975949 211952 5 Guide Wire Health (502455) SHEATH 6FR Cardinal 1 7332840 783477 9375539 118910 5 [facility] Health (2273222) DIAGNOSTIC Terumo 1 40-9506 951892 387364 863362 5 [place] 110cm 5 Fr catheter (719564) DIAGNOSTIC Cardinal 1 [id number] 583595 284249 848860 15 AR MOD 5Fr Health Catheter (263914S) ZEPHYR Cardinal 1 741907 393863 7783623 768461 5 REGULAR TR Health BAND (717626) Signature Audit [place] Stage Time Signature Unsigned Intra-Procedure 07/01/2019 Sarai Romano 4:00:28 PM RN Intra-Procedure 07/01/2019 Rylan 4:00:48 PM Conchita RN Intra-Procedure 07/01/2019 Sancho Seth MD 4:01:20 PM [place] [id number] [place] [address]
[2019-07-01] MEDS ORDERED: BAYER CHEWABLE81 MG PO (12:31)
[2019-07-01] MEDS ORDERED: BAYER CHEWABLE81 MG (12:31)
[2019-07-01] MEDS ORDERED: PEPCID AC20 MG PO (12:32)
[2019-07-01] MEDS ORDERED: MULTI-DAY VITAM1 TAB PO (12:33)
[2019-07-01 12:45] VITALS: BP 155/71; Ht 165.1 cm; Wt 155.9 kg
[2019-07-01 13:17] LABS: ALT (SGPT) 27 U/L (10-68); CALC OSMOLALITY 285 mosm/kg (275-300); CARBON DIOXIDE 26.9 mmol/L (21.0-32.0); CHLORIDE - SERUM 105 mmol/L (98-107); CHOL - HDL RATIO 4.1 ratio (2.3-4.1); CHOLESTEROL, TOTAL 160 mg/dL (0-200); CREATININE - SERUM 0.8 mg/dL (0.6-1.3); HDL CHOLESTEROL 39 mg/dL (32-96); LDL CHOLESTEROL 105 mg/dL (0-100); LDL-HDL RATIO 2.7 ratio (1.5-3.5); POTASSIUM - SERUM 4.3 mmol/L (3.5-5.1); SODIUM 139 mmol/L (136-145); TRIGLYCERIDE 80 mg/dL (30-200); UREA NITROGEN 15 mg/dL (7-18); eGFR NON AFRICAN AMERICAN 78 mL/min (90-120)
[2019-07-01 13:21] LABS: GLUCOSE 230 mg/dL (74-106)
[2019-07-01 13:27] LABS: BASOPHILS 0.5 % (0-2); EOSINOPHILS 3.2 % (0-7); HEMATOCRIT 41.9 % (36.0-48.0); HEMOGLOBIN 13.8 g/dL (12-16); IMMATURE GRANULOCYTES 0.1 % (0-5); LYMPHOCYTES 30.7 % (15-50); MCH 26.9 pg (26.0-34.0); MCHC 32.9 g/dL (31.0-37.0); MCV 81.7 fL (80.0-100.0); MEAN PLATELET VOLUME 10.6 fL (7.4-10.4); MONOCYTES 6.9 % (2-11); NEUTROPHILS 58.6 % (40-80); PLATELET COUNT 317 10x3/uL (130-400); RBC 5.13 10x6/uL (4.00-5.40); RDW 14.2 % (11.5-14.5); WBC 7.4 10x3/uL (4.8-10.8)
--- NOTE | 2019-07-01 16:10 | NUR ---
REC TO ROOM VIA STRETCHER FROM HIGH PRESSURE KETTLE OPERATOR. MONITORING INITIATED. R WRIST ZBAND INTACT, RADIAL PULSE PALPABLE ABOVE AND BELOW. NO S/S BLEEDING OR HEMATOMA. BP 115/72, HR 88, SAT 97% ON 2LNC.
--- NOTE | 2019-07-01 16:46 | NUR ---
R WRIST ZBAND INTACT, NO S/S BLEEDING OR HEMATOMA. BP 100/58, NSR 86, RR 17. SAT 96%2LNC.
--- NOTE | 2019-07-01 17:01 | NUR ---
ONE ML AIR RELEASED FROM R WRIST ZBAND. NO S/S BLEEDING OR HEMATOMA.
--- NOTE | 2019-07-01 17:15 | NUR ---
3ML REMOVED ZBAND, NO S/S BLEEDING OR HEMATOMA.
--- NOTE | 2019-07-01 17:28 | NUR ---
2ML REMOVED ZBAND, NO S/S BLEEDING OR HEMATOMA. TOTAL 6ML OUT. BP 113/61, NSR 85.
--- NOTE | 2019-07-01 17:50 | NUR ---
ZBAND DEFLATED, NO S/S BLEEDING OR HEMATOMA. IV DC TIP INTACT, MONITORING DISCONTINUED. PT AMBULATED TO REST ROOM WITHOUT DIFFICULTY.
--- NOTE | 2019-07-01 18:10 | NUR ---
PT DRESSING, ASSIST NEEDED.
--- NOTE | 2019-07-01 18:15 | NUR ---
ZBAND REMOVED, NO S/S BLEEDING OR HEMATOMA. DRESSED WITH 2X2 AND TEGADERM. DISCHARGE INSTRUCTIONS REVIEWED.
--- NOTE | 2019-07-01 18:25 | NUR ---
DC HOME WITH ALL BELONGINGS, WHEELCHAIR TO PRIVATE VEHICLE WITH SON.
== END 2019-07-01 18:25 | disposition home or self-care (01) ==
LOC: D.CATH 11:37
PROVIDERS: ATTEND Internal Medicine Cardiovascular Disease
DX: I25.119 Atherosclerotic heart disease of native coronary artery with unspecified angina pectoris (principal); R94.39 Abnormal result of other cardiovascular function study; I10 Essential (primary) hypertension; R07.9 Chest pain, unspecified; E11.9 Type 2 diabetes mellitus without complications

== ENCOUNTER 2019-11-02 22:19 | Emergency (ER) | payer MEDICARE, MEDICAID ==
[~2019-11-02] VITALS: Ht 165.1 cm; Wt 136.4 kg
[~2019-11-02 22:19] MED LIST changes: +BAYER CHEWABLE81 MG; +BAYER CHEWABLE81 MG PO; +MULTI-DAY VITAM1 TAB PO; +PEPCID AC20 MG PO
[2019-11-02 22:28] VITALS: Ht 165.1 cm; Wt 136.4 kg
[2019-11-02] MEDS ORDERED: ULTRAM50 MG PO (23:33)
[2019-11-02 23:55] VITALS: BP 124/80
== END 2019-11-02 23:55 | disposition home or self-care (01) ==
LOC: D.ER 22:19
DX: S53.402A Unspecified sprain of left elbow, initial encounter (principal); M79.602 Pain in left arm; S50.02XA Contusion of left elbow, initial encounter; X58.XXXA Exposure to other specified factors, initial encounter

== ENCOUNTER → 2020-08-31 13:48 | Outpatient (CLI) | payer MEDICARE, MEDICAID ==
[2019-11-02 22:28] VITALS: BMI 50.0
[~2020-08-31 13:48] MED LIST changes: +ULTRAM50 MG PO
== END | disposition home or self-care (01) ==
LOC: D.HCCECHO 13:48
PROVIDERS: ATTEND Internal Medicine Cardiovascular Disease
DX: I10 Essential (primary) hypertension (principal)

== ENCOUNTER 2020-09-23 19:48 | Inpatient (IN) | payer MEDICARE, MEDICAID ==
[~2020-09-23] VITALS: Ht 165.1 cm; Wt 163.2 kg
[2020-09-23 20:27] LABS: EOSINOPHILS 0.3 % (0-7); HEMATOCRIT 40.8 % (36.0-48.0); HEMOGLOBIN 13.4 g/dL (12-16); LYMPHOCYTES 11.8 % (15-50); MCH 26.6 pg (26.0-34.0); MCHC 32.9 g/dL (31.0-37.0); MONOCYTES 6.5 % (2-11); NEUTROPHILS 80.4 % (40-80); PLATELET COUNT 283 10x3/uL (130-400); RBC 5.03 10x6/uL (4.00-5.40); RDW 14.5 % (11.5-14.5); WBC 13.9 10x3/uL (4.8-10.8)
--- NOTE | 2020-09-23 20:32 | NUR ---
PT REQUESTING BLANKET, PT INFORMED SHE CANNOT HAVE ONE BECAUSE SHE HAS A FEVER. PT GIVEN SHEET INSTEAD. DENIES FURTHER NEEDS. CALL LIGHT IN REACH.
[2020-09-23 20:33] LABS: APTT 27.7 SECONDS (22.8-39.4); INR 1.13 (0.85-1.17); PROTIME 13.4 SECONDS (11.6-15.0)
[2020-09-23 20:35] LABS: CALC OSMOLALITY 274 mosm/kg (275-300); CARBON DIOXIDE 25.9 mmol/L (21.0-32.0); CHLORIDE - SERUM 100 mmol/L (98-107); CREATININE - SERUM 1.1 mg/dL (0.6-1.3); POTASSIUM - SERUM 3.9 mmol/L (3.5-5.1); SODIUM 136 mmol/L (136-145); UREA NITROGEN 17 mg/dL (7-18); eGFR NON AFRICAN AMERICAN 54 mL/min (90-120)
[2020-09-23 20:36] LABS: GLUCOSE 120 mg/dL (74-106)
[2020-09-23 20:37] LABS: INFLUENZA TYPE A NEGATIVE (NEGATIVE); INFLUENZA TYPE B NEGATIVE (NEGATIVE); SARS-CoV-2 ANTIGEN NEGATIVE- SARS-COV-2 (NEGATIVE)
[2020-09-23 20:38] LABS: BILIRUBIN NEGATIVE (NEGATIVE); KETONE NEGATIVE (NEGATIVE); NITRITE NEGATIVE (NEGATIVE); UROBILINOGEN NORMAL mg/dL (< 2)
[2020-09-23 20:47] LABS: BACTERIA MODERATE HPF (NONE SEEN); SQUAMOUS EPITHELIAL 0-5 HPF (0-4); WHITE CELLS - URINE 0-5 HPF (0-4)
[2020-09-23 20:53] LABS: ALBUMIN 3.3 g/dL (3.4-5.0); ALKALINE PHOSPHATASE 157 U/L (30-120); ALT (SGPT) 24 U/L (10-68); BILIRUBIN - TOTAL 0.91 mg/dL (0.2-1.3); CKMB 0.3 U/L (0.0-3.6); CREATINE KINASE 121 UL (21-215); PRO BNP 265 pg/mL (0-125); PROTEIN - SERUM 7.6 g/dL (6.4-8.2); TROPONIN-I < 0.017 ng/mL (0.000-0.060)
[2020-09-23 21:21] VITALS: BP 122/53
[2020-09-23] MEDS ORDERED: COREG 3.1253.125 MG PO (22:09)
[2020-09-23] MEDS ORDERED: LIPITOR20 MG PO (22:10)
[2020-09-23] MEDS ORDERED: GABAPENTIN100 MG PO (22:10)
[2020-09-23] MEDS ORDERED: FAMOTIDINE10 MG PO (22:10)
[2020-09-23] MEDS ORDERED: CYCLOBENZAPRINE10 MG PO (22:11)
--- NOTE | 2020-09-23 22:16 | NUR ---
ANSWERED PT CALL LIGHT. PT REQUESTING PILLOW. PT GIVEN PILLOW AND HEAD OF BED LOWERED TO LEVEL OF COMFORT. DENIES NEEDS. CALL LIGHT IN REACH.
[2020-09-23 22:20] VITALS: BP 112/50
[2020-09-23] MEDS ORDERED: NOVOLOG100 UNIT/1 SC (22:34)
[2020-09-23] MEDS ORDERED: TRESIBA FL100 UNIT/1 SC (22:34)
[2020-09-23 23:00] VITALS: BP 115/66
--- NOTE | 2020-09-23 23:49 | NUR ---
PT IV ZITHROMAX FINISHED AT THIS TIME.
[2020-09-24] VITALS (13 sets, daily range): BP systolic 100–130; BP diastolic 49–70; Ht 165.1 cm; Wt 163.2 kg
--- NOTE | 2020-09-24 01:53 | NUR ---
PT FSBS 125, NO INSULIN GIVEN PER SLIDING SCALE.
--- NOTE | 2020-09-24 03:18 | NUR ---
PT RESTING COMFORTABLY, RR EVEN AND UNLABORED, VSS. CALL LIGHT IN REACH.
--- NOTE | 2020-09-24 04:07 | NUR ---
ANSWERED PT CALL LIGHT, PT STATES SHE NEEDS TO USE THE RESTROOM. PT GIVEN BEDSIDE COMMODE AND WIPES. DENIES FURTHER NEEDS. CALL LIGHT IN REACH.
--- NOTE | 2020-09-24 07:37 | NUR ---
RECEIVED REPORT FROM JED IN ED, PATIENT TO UNIT SOON.
[2020-09-24 08:37] LABS: BASOPHILS 0.4 % (0-2); EOSINOPHILS 0 % (0-7); HEMATOCRIT 38.8 % (36.0-48.0); HEMOGLOBIN 12.6 g/dL (12-16); LYMPHOCYTES 5.7 % (15-50); MCH 26.7 pg (26.0-34.0); MCHC 32.6 g/dL (31.0-37.0); MCV 81.9 fL (80.0-100.0); MONOCYTES 1.2 % (2-11); NEUTROPHILS 92.7 % (40-80); PLATELET COUNT 250 10x3/uL (130-400); RBC 4.74 10x6/uL (4.00-5.40); RDW 14.5 % (11.5-14.5); WBC 12.4 10x3/uL (4.8-10.8)
--- NOTE | 2020-09-24 08:45 | NUR ---
PATIENT ARRIVED TO UNIT AND ADMITTED TO ROOM 2133. PATIENT PLACED IN DROPLET ISOLATION FOR PUI OF COVID.
[2020-09-24 09:09] LABS: ALBUMIN 2.9 g/dL (3.4-5.0); ANION GAP 15.1 mmol/L (8-16); BILIRUBIN - TOTAL 0.59 mg/dL (0.2-1.3); CALCIUM 8.2 mg/dL (8.5-10.1); CARBON DIOXIDE 23.6 mmol/L (21.0-32.0); PHOSPHOROUS 3.6 mg/dL (2.5-4.9); POTASSIUM - SERUM 3.7 mmol/L (3.5-5.1); PROTEIN - SERUM 7.4 g/dL (6.4-8.2)
[2020-09-24 09:13] LABS: C-REACTIVE PROTEIN 25.2 mg/dL (0.0-0.9)
[2020-09-24] MEDS ORDERED: LISINOPRIL10 MG PO (09:39)
[2020-09-24] MEDS ORDERED: NITROSTAT0.4 MG SL (09:44)
[2020-09-24 09:46] LABS: ERYTHROCYTE SEDIMENTATION RATE 40 mm/hr (0-30)
--- NOTE | 2020-09-24 11:17 | NUR ---
FSBS 278, 6 UNITS HUMALOG ADMINISTERED PER SLIDING SCALE.
--- NOTE | 2020-09-24 15:02 | NUR ---
FSBS 258, 6 UNITS HUMALOG ADMINISTERED PER SLIDING SCALE.
--- NOTE | 2020-09-24 15:35 | NUR ---
CALLED AND SPOKE WITH JENS THE PHARMACIST ABOUT CHANGING FSBS TO MEAL TIMES PATIENT WAS SAVING HER MEALS FOR 2 HOURS SO HER FSBS COULD BE CHECKED BECAUSE SHE DIDN'T WANT TO MESS UP THE READINGS.
--- NOTE | 2020-09-24 16:23 | NUR ---
FSBS 279. 6 UNITS HUMALOG ADMINISTERED PER SLIDING SCALE.
[2020-09-24] MEDS ORDERED: GABAPENTIN100 MG PO (23:06)
[2020-09-25 00:51] VITALS: BP 125/70
[2020-09-25 06:34] VITALS: BP 125/70
--- NOTE | 2020-09-25 07:00 | NUR ---
RECEIVED REPORT. ASSUMED CARE OF PATIENT. PATIENT REMAINS IN DROPLET ISOLATION PUI FOR COVID.
[2020-09-25 08:07] LABS: BASOPHILS 0.2 % (0-2); EOSINOPHILS 0 % (0-7); HEMATOCRIT 35.6 % (36.0-48.0); HEMOGLOBIN 11.7 g/dL (12-16); MCH 26.8 pg (26.0-34.0); MCHC 32.8 g/dL (31.0-37.0); MCV 81.7 fL (80.0-100.0); MEAN PLATELET VOLUME 8.6 fL (7.4-10.4); MONOCYTES 2.1 % (2-11); NEUTROPHILS 91.7 % (40-80); PLATELET COUNT 261 10x3/uL (130-400); RBC 4.35 10x6/uL (4.00-5.40); RDW 14.2 % (11.5-14.5); WBC 12.3 10x3/uL (4.8-10.8)
[2020-09-25 08:10] LABS: ALBUMIN 2.7 g/dL (3.4-5.0); ANION GAP 15.3 mmol/L (8-16); BILIRUBIN - TOTAL 0.26 mg/dL (0.2-1.3); CALCIUM 8.3 mg/dL (8.5-10.1); CARBON DIOXIDE 22.9 mmol/L (21.0-32.0); CREATININE - SERUM 0.9 mg/dL (0.6-1.3); MAGNESIUM - SERUM 2.3 mg/dL (1.8-2.4); PHOSPHOROUS 2.7 mg/dL (2.5-4.9); POTASSIUM - SERUM 4.2 mmol/L (3.5-5.1); PROTEIN - SERUM 6.8 g/dL (6.4-8.2)
[2020-09-25 08:13] VITALS: BP 93/57
--- NOTE | 2020-09-25 08:30 | NUR ---
FSBS 316. 8 UNITS HUMALOG ADMINISTERED ORDERED.
--- NOTE | 2020-09-25 11:25 | NUR ---
FSBS 378, 16 UNITS ADMINISTERED PER SLIDING SCALE.
--- NOTE | 2020-09-25 11:40 | NUR ---
BLUE BAG GIVEN TO PATIENT THAT HER SON BROUGHT TO THE UNIT FOR HER.
[2020-09-25 12:28] VITALS: BP 106/58
--- NOTE | 2020-09-25 15:30 | NUR ---
FSBS 328. 12 UNITS HUMALOG ADMINISTERED PER SLIDING SCALE. LABEL FROM PHARMACY CREATED FOR [employer] INSULIN PIN APPLIED TO PATIENTS OWN HOME MEDICATION. CALL LIGHT WITHIN REACH. PATIENT SITTING IN CHAIR TO SIDE OF BED WITH ATTENTION TOWARD CELLPHONE. NO DISTRESS.
[2020-09-25 16:11] VITALS: BP 128/71
--- NOTE | 2020-09-25 16:39 | NUR ---
PT OOB SITTING TO CHAIR AT BEDSIDE CECI, DENIES NEEDS AT THIS TIME. CALL LIGHT WITHIN REACH. NO DISTRESS.
--- NOTE | 2020-09-25 19:44 | NUR ---
PT AA&O SITTING IN CHAIR Q 4 HR FSBS 325 PT REQUESTS THAT THIS BE RECHECKED SHE JUST ATE HER DINNER, DENIES NEEDS, WILL CONTINUE TO MONITOR
[2020-09-25 19:59] VITALS: BP 136/66
[2020-09-26 00:33] VITALS: BP 136/66
[2020-09-26 05:26] VITALS: BP 122/56
[2020-09-26 08:25] LABS: BASOPHILS 0.1 % (0-2); EOSINOPHILS 0 % (0-7); HEMATOCRIT 36.3 % (36.0-48.0); HEMOGLOBIN 11.9 g/dL (12-16); LYMPHOCYTES 10.6 % (15-50); MCH 26.4 pg (26.0-34.0); MCHC 32.8 g/dL (31.0-37.0); MCV 80.5 fL (80.0-100.0); MEAN PLATELET VOLUME 8.2 fL (7.4-10.4); MONOCYTES 2.5 % (2-11); NEUTROPHILS 86.8 % (40-80); PLATELET COUNT 298 10x3/uL (130-400); RBC 4.51 10x6/uL (4.00-5.40); RDW 14.5 % (11.5-14.5); WBC 10.1 10x3/uL (4.8-10.8)
[2020-09-26 08:49] LABS: ALBUMIN 2.7 g/dL (3.4-5.0); ALKALINE PHOSPHATASE 122 U/L (30-120); ALT (SGPT) 34 U/L (10-68); BILIRUBIN - TOTAL 0.21 mg/dL (0.2-1.3); CALC OSMOLALITY 287 mosm/kg (275-300); CALCIUM 8.4 mg/dL (8.5-10.1); CARBON DIOXIDE 23.1 mmol/L (21.0-32.0); CHLORIDE - SERUM 107 mmol/L (98-107); CREATININE - SERUM 0.7 mg/dL (0.6-1.3); MAGNESIUM - SERUM 2.3 mg/dL (1.8-2.4); PHOSPHOROUS 3.2 mg/dL (2.5-4.9); POTASSIUM - SERUM 4.2 mmol/L (3.5-5.1); PROTEIN - SERUM 6.6 g/dL (6.4-8.2); SODIUM 138 mmol/L (136-145); UREA NITROGEN 25 mg/dL (7-18); eGFR NON AFRICAN AMERICAN > 90 mL/min (90-120)
[2020-09-26 08:53] LABS: GLUCOSE 250 mg/dL (74-106)
--- NOTE | 2020-09-26 12:02 | NUR ---
PT CHECKS FSBS WITH HER MACHINE AND DOES NOT WANT TO BE POKED TWICE. PT HAS OWN INSULIN IN ROOM.
[2020-09-26 20:25] VITALS: BP 128/74
[2020-09-27 00:45] VITALS: BP 108/58
[2020-09-27 04:50] VITALS: BP 103/48
[2020-09-27 06:13] LABS: BASOPHILS 0.2 % (0-2); EOSINOPHILS 0 % (0-7); HEMATOCRIT 37.5 % (36.0-48.0); HEMOGLOBIN 12.2 g/dL (12-16); MCH 26.3 pg (26.0-34.0); MCHC 32.7 g/dL (31.0-37.0); MCV 80.5 fL (80.0-100.0); MEAN PLATELET VOLUME 8.1 fL (7.4-10.4); MONOCYTES 2.4 % (2-11); NEUTROPHILS 86.4 % (40-80); PLATELET COUNT 339 10x3/uL (130-400); RBC 4.66 10x6/uL (4.00-5.40); RDW 14.5 % (11.5-14.5)
[2020-09-27 06:34] LABS: ALBUMIN 2.8 g/dL (3.4-5.0); ANION GAP 11.4 mmol/L (8-16); BILIRUBIN - TOTAL 0.25 mg/dL (0.2-1.3); CALCIUM 7.9 mg/dL (8.5-10.1); CARBON DIOXIDE 25.7 mmol/L (21.0-32.0); MAGNESIUM - SERUM 2.2 mg/dL (1.8-2.4); PHOSPHOROUS 2.8 mg/dL (2.5-4.9); POTASSIUM - SERUM 4.1 mmol/L (3.5-5.1); PROTEIN - SERUM 6.8 g/dL (6.4-8.2)
[2020-09-27 06:39] LABS: CREATININE - SERUM 0.9 mg/dL (0.6-1.3)
[2020-09-27 09:00] VITALS: BP 156/88
[2020-09-27] MEDS ORDERED: VENTOLIN HFA [SP8 GM INH (11:24)
[2020-09-27] MEDS ORDERED: MELATONIN 3 MG1 TAB PO (11:25)
[2020-09-27] MEDS ORDERED: VITAMIN B-1100 M1 PO (11:25)
[2020-09-27] MEDS ORDERED: VITAMIN D325 MC1 PO (11:25)
[2020-09-27] MEDS ORDERED: VITAMIN C PO (11:26)
[2020-09-27] MEDS ORDERED: AZITHROMYCIN500 MG PO (11:26)
[2020-09-27] MEDS ORDERED: PREDNISONE10 MG PO (11:26)
--- NOTE | 2020-09-27 12:38 | MORECARE ---
CASE MANAGEMENT DISCHARGE SUMMARY PATIENT: WALTER CONN UNIT: [id number] ADM DATE: 09/23/20 AGE: 59 : 64 SEX: F ROOM/BED: D.2133 AUTHOR: ANA PAULA,DOC PHYSICIAN: REFERRING PHYSICIAN: MARISELA LIN MD DATE OF SERVICE: 09/27/20 Case Management Discharge Planning Summary DCP REVIEW SUMMARY ANTICIPATED D/C DATE: 09/27/2020 EXPECTED LOS : 4 CASE STATUS: DCP Initiated INITIAL REVIEW: 09/27/2020 INITIAL REVIEWER: Yumiko High FINAL DISCHARGE DISPOSITION: : FINAL REVIEWER: FINAL REVIEW DATE: DCP Focus Questions & Answers DCP Screen QUESTION: ANSWER High Risk Factors: : None Walking limitation: Patient stated self rated walking limitation present? : No Age: : 45 - 64 Prior living environment: : Lives with others Disability ranking: : Grade 1: No significant disability DCP Evaluation QUESTION: ANSWER Patient's ability to cope with chronic illness : d. No chronic illness Would patient like to participate in any Care Coordination programs (if applicable): : Not applicable Mental health screen: : No mental health history DCP Re-evaluation QUESTION: ANSWER Would patient like to participate in any Care Coordination programs (if applicable): : Not applicable PATIENT: WALTER CONN ENCOUNTER: [id number] MEDICAL RECORD#: [id number] ADMISSION DATE: 09/23/2020 DISCHARGE DATE: ATTENDING MD: MARISELA HENDRICKS : AGE: 59 MARITAL STATUS: S DC PLAN ID: [id number] FACILITY: [facility] PRINTED ON: 09/27/20 12:38 CT All edits/amendments must be made on the electronic document DICTATION DATE: 09/27/20 1237 RETAIL ANALYST: DM 09/27/20 1237 RPT#: [id number] DC DATE: STATUS: ADM IN [facility] [address] [place] [address] END OF REPORT
--- NOTE | 2020-09-27 12:49 | MORECARE ---
CASE MANAGEMENT DISCHARGE SUMMARY PATIENT: WALTER MANSFIELD UNIT: [id number] ADM DATE: 09/23/20 AGE: 59 : 64 SEX: F ROOM/BED: D.2419 AUTHOR: ANA PAULA,DOC PHYSICIAN: REFERRING PHYSICIAN: MARISELA LIN MD DATE OF SERVICE: 09/27/20 Case Management Discharge Planning Summary COMMENTS ENTERED DATE: 09/27/20 12:42 CT COMMENT TYPE: Discharge Planning REVIEWER: Yumiko High DC PLAN: Home ANTICIPATED DC NEEDS: None Identified PCP: Trevor Ruffin CM met with patient to complete initial dc planning assessment. CM educated patient on the CM role and verbal consent given by patient to complete assessment. CM verified patient's address, phone number, and emergency contact phone numbers. Patient lives at home with her son. At discharge patient plans to return and feels this is a safe discharge. CM discussed availability of home health, rehab services, and medical equipment. Patient denied known discharge needs at this time. Transportation provider at discharge will be herself, states her son dropped off her car. States she is steady on her feet and no shortness of breath and feels safe to drive. IMM explained over phone and given by bedside nurse, voiced understanding. CM will continue to follow and will assist as needed with dc plans/needs. DCP REVIEW SUMMARY ANTICIPATED D/C DATE: 09/27/2020 EXPECTED LOS : 4 CASE STATUS: DCP Initiated INITIAL REVIEW: 09/27/2020 INITIAL REVIEWER: Yumiko High FINAL DISCHARGE DISPOSITION: : FINAL REVIEWER: FINAL REVIEW DATE: DCP Focus Questions & Answers DCP Screen QUESTION: ANSWER High Risk Factors: : None Walking limitation: Patient stated self rated walking limitation present? : No Age: : 45 - 64 Prior living environment: : Lives with others Disability ranking: : Grade 1: No significant disability DCP Evaluation QUESTION: ANSWER Patient's ability to cope with chronic illness : d. No chronic illness Patient gives permission to discuss discharge plans with: (name, relationship and number) : Bud Mansfield - son - [phone] Patient's current cognitive status: : *Oriented to person, place, situation, time and present Patient and/or caregiver agree upon recommended discharge plan? : Yes Physical Status: : Independent with ADL's Family / Caregiver's ability to cope with chronic illness: : a. Adequate (ability to meet patient's medical needs, ensures patient attends medical appts.) Functional screen assessment: : Basic needs can adequately be met by self Living Arrangements: : Home with others Equipment needed for post hospitalization: : None Baseline cognitive status: : *Oriented to person, place, situation, time and present Living arrangements comments: : Lives with son Patient with capacity for self-care or can be cared for in same environment as prior to hospitalization? : Yes Results of this evaluation have been discussed with: : Patient Medication Management: : Patient states can afford medications Pharmacy name(s): : [facility] Does Patient have transportation to get home and to follow-up medical appointments when discharged from the hospital? : Yes Would patient like to participate in any Care Coordination programs (if applicable): : Not applicable Comments: : She is independent with ADL's/drives herself to appointments Does the patient have electricity at home? : Yes Does the patient have running water in their house? : Yes Equipment in use: : None Mental health screen: : No mental health history Abuse/Neglect: : None Resources / Services in place: : None DCP Re-evaluation QUESTION: ANSWER Would patient like to participate in any Care Coordination programs (if applicable): : Not applicable PATIENT: WALTER MANSFIELD ENCOUNTER: [id number] MEDICAL RECORD#: [id number] ADMISSION DATE: 09/23/2020 DISCHARGE DATE: ATTENDING MD: MARISELA HENDRICKS : AGE: 59 MARITAL STATUS: S DC PLAN ID: [id number] FACILITY: [facility] PRINTED ON: 09/27/20 12:49 CT All edits/amendments must be made on the electronic document DICTATION DATE: 09/27/201248 LOOP TACKER: SUMA 09/27/20 1249 RPT#: [id number] DC DATE: STATUS: ADM IN [facility] [address] [place] [address] END OF REPORT
--- NOTE | 2020-09-27 12:54 | NUR ---
SALINE LOCK REMOVED, DISCHARGE PAPERS DISCUSSED WITH PATIENT AND SHES FINISHING LUNCH.
--- NOTE | 2020-09-27 13:18 | NUR ---
TO CAR VIA WHEELCHAIR FOR DISCHARGE.
--- NOTE | 2020-10-03 16:27 | MORECARE ---
CASE MANAGEMENT DISCHARGE SUMMARY PATIENT: WALTER MANSFIELD UNIT: [id number] ADM DATE: 09/23/20 AGE: 59 : 64 SEX: F ROOM/BED: D.2133 AUTHOR: ANA PAULA,DOC PHYSICIAN: REFERRING PHYSICIAN: MARISELA LIN MD DATE OF SERVICE: 10/03/20 Case Management Discharge Planning Summary COMMENTS ENTERED DATE: 09/27/20 12:42 CT COMMENT TYPE: Discharge Planning REVIEWER: Yumiko High DC PLAN: Home ANTICIPATED DC NEEDS: None Identified PCP: Trevor Ruffin CM met with patient to complete initial dc planning assessment. CM educated patient on the CM role and verbal consent given by patient to complete assessment. CM verified patient's address, phone number, and emergency contact phone numbers. Patient lives at home with her son. At discharge patient plans to return and feels this is a safe discharge. CM discussed availability of home health, rehab services, and medical equipment. Patient denied known discharge needs at this time. Transportation provider at discharge will be herself, states her son dropped off her car. States she is steady on her feet and no shortness of breath and feels safe to drive. IMM explained over phone and given by bedside nurse, voiced understanding. CM will continue to follow and will assist as needed with dc plans/needs. DCP REVIEW SUMMARY ANTICIPATED D/C DATE: 09/27/2020 EXPECTED LOS : 4 CASE STATUS: DCP Initiated INITIAL REVIEW: 09/27/2020 INITIAL REVIEWER: Yumiko High FINAL DISCHARGE DISPOSITION: : FINAL REVIEWER: FINAL REVIEW DATE: DCP Focus Questions & Answers DCP Screen QUESTION: ANSWER High Risk Factors: : None Walking limitation: Patient stated self rated walking limitation present? : No Age: : 47 - 66 Prior living environment: : Lives with others Disability ranking: : Grade 1: No significant disability DCP Evaluation QUESTION: ANSWER Patient and/or caregiver agree upon recommended discharge plan? : Yes Patient's current cognitive status: : *Oriented to person, place, situation, time and present Patient gives permission to discuss discharge plans with: (name, relationship and number) : Bud Mansfield - son - [phone] Patient's ability to cope with chronic illness : d. No chronic illness Functional screen assessment: : Basic needs can adequately be met by self Family / Caregiver's ability to cope with chronic illness: : a. Adequate (ability to meet patient's medical needs, ensures patient attends medical appts.) Physical Status: : Independent with ADL's Equipment needed for post hospitalization: : None Living Arrangements: : Home with others Results of this evaluation have been discussed with: : Patient Patient with capacity for self-care or can be cared for in same environment as prior to hospitalization? : Yes Living arrangements comments: : Lives with son Baseline cognitive status: : *Oriented to person, place, situation, time and present Medication Management: : Patient states can afford medications Pharmacy name(s): : [facility] Does Patient have transportation to get home and to follow-up medical appointments when discharged from the hospital? : Yes Comments: : She is independent with ADL's/drives herself to appointments Would patient like to participate in any Care Coordination programs (if applicable): : Not applicable Does the patient have electricity at home? : Yes Does the patient have running water in their house? : Yes Equipment in use: : None Mental health screen: : No mental health history Abuse/Neglect: : None Resources / Services in place: : None DCP Re-evaluation QUESTION: ANSWER Would patient like to participate in any Care Coordination programs (if applicable): : Not applicable PATIENT: WALTER MANSFIELD ENCOUNTER: [id number] MEDICAL RECORD#: [id number] ADMISSION DATE: 09/23/2020 DISCHARGE DATE: 09/27/2020 ATTENDING MD: MARISELA HENDRICKS : AGE: 59 MARITAL STATUS: S DC PLAN ID: [id number] FACILITY: [facility] PRINTED ON: 10/03/20 16:27 CT All edits/amendments must be made on the electronic document DICTATION DATE: 10/03/201626 TAX ASSISTANT: DM 10/03/20 162 RPT#: [id number] DC DATE:09/27/20 STATUS: DIS IN [facility] [address] [place] [address] END OF REPORT
== END 2020-09-27 13:23 | disposition home or self-care (01) | DRG 194 ==
LOC: D.ER 19:48 → D.EDHOLD 21:38 → D.M2 21:38
PROVIDERS: Family Medicine; ADMIT Emergency Medicine; ATTEND Emergency Medicine
DX: J18.9 Pneumonia, unspecified organism (principal); N39.0 Urinary tract infection, site not specified; Z68.43 Body mass index [BMI] 50.0-59.9, adult; I10 Essential (primary) hypertension; E78.5 Hyperlipidemia, unspecified; Z20.822 Contact with and (suspected) exposure to COVID-19; R91.1 Solitary pulmonary nodule; E11.65 Type 2 diabetes mellitus with hyperglycemia; K21.9 Gastro-esophageal reflux disease without esophagitis; J30.9 Allergic rhinitis, unspecified; E66.01 Morbid (severe) obesity due to excess calories; Z72.0 Tobacco use

== ENCOUNTER → 2020-10-17 15:30 | Outpatient (CLI) | payer MEDICARE, MEDICAID ==
[2020-09-24 19:09] VITALS: BMI 59.8
[~2020-10-17 15:30] MED LIST changes: +AZITHROMYCIN500 MG PO; +FAMOTIDINE10 MG PO; +LISINOPRIL10 MG PO; +MELATONIN 3 MG1 TAB PO; +NITROSTAT0.4 MG SL; +NOVOLOG100 UNIT/1 SC; +PREDNISONE10 MG PO; +VENTOLIN HFA [SP8 GM INH; +VITAMIN B-1100 M1 PO; +VITAMIN C PO; +VITAMIN D325 MC1 PO
== END | disposition home or self-care (01) ==
LOC: D.MAMMO 15:30
PROVIDERS: ATTEND Family Medicine
DX: Z12.31 Encounter for screening mammogram for malignant neoplasm of breast (principal)